=== PATIENT | male | born 1945 | race Caucasian/White ===

== ENCOUNTER → 2018-02-26 | Outpatient (CLI) | payer OTHER ==
[~2018-02-26] MED LIST: ASPI81TA28 PO; ATOR10TA82 PO; ATOR80TA PO; CALC-354 PO; CHOL100010 PO; DOXA2TAB PO; ETAN50IN2 SQ; ETAN50IN3 SQ; FEXO1TAB49 PO; FLUT1INH7; FRS/40 PO; FURO-85 PO; GLC/500 PO; HMLI SC; HMLNPUC; INSDGI SC; INSDGIPEN SC; ISOS30TA3 PO; LEVO50TA6 PO; LOSA100T2 PO; LSX40 PO; METO100T44 PO; METO50TA8 PO; NTRGSL/4 UT; OMEGCAP2 PO; PHEN37.585 PO; TOPI25TA99 PO
--- NOTE | 2018-02-26 14:19 | DIAGNOSTIC IMAGING REPORT ---
CHEST 2 VIEWS ROUTINE CLINICAL HISTORY: R06.02 Shortness of [id number] dyspnea COMPARISON STUDY: 06/10/2015 FINDINGS: Mild stable cardiomegaly. Lungs are clear. Diaphragms smooth. IMPRESSION: No acute process. The above report was generated using voice recognition software. It may contain grammatical, syntax or spelling errors. Electronically signed by: Arnav Dial M.D. 02/26/2018 2:17 PM Dictated Date/Time: 02/26/2018 2:16 PM
[2018-02-26 15:35] LABS: HEMATOCRIT 41.1 % (42-52); HEMOGLOBIN 14.4 g/dL (14.0-18.0); MEAN CELL VOLUME 91.3 fL (80-100); MEAN PLATELET VOLUME 9.9 fL (7.4-10.4); PLATELET COUNT 156 K/uL (130-400); RED CELL DISTRIBUTION WIDTH CV 12.6 % (11.5-14.5); RED CELL DISTRIBUTION WIDTH SD 42.3 fL (36.4-46.3)
[2018-02-26 15:48] LABS: BLOOD UREA NITROGEN 15 mg/dl (7-18); CARBON DIOXIDE 26 mmol/L (21-32); GLUCOSE 286 mg/dl (70-99); POTASSIUM 4.2 mmol/L (3.5-5.1); SODIUM 136 mmol/L (136-145)
== END | disposition home or self-care (01) ==
LOC: C.RAD1850 14:07
PROVIDERS: ATTEND Physician Assistant
DX: R06.02 Shortness of breath (principal); I10 Essential (primary) hypertension

== ENCOUNTER → 2018-02-28 | Day surgery (SDC) | payer OTHER ==
[~2018-02-28] VITALS: Ht 170.2 cm; Wt 141.0 kg
[~2018-02-28] MED LIST changes: +ASPIRIN 81 MG CHEW ONE; -ETAN50IN2 SQ; +FENTANYL CITRATE INJ 50 MCG/1 ML 2 ML VIAL ONE; -FURO-85 PO; +HEPARIN SOD (PORCINE) 1000 UNIT/ML 10 ML VIAL ONE; -HMLI SC; -INSDGI SC; +LIDOCAINE HCL 1% 20 ML VIAL ONE; -LOSA100T2 PO; +METOPROLOL SUCC 25MG EXT REL TAB PO ONE; +MIDAZOLAM HCL 1 MG/ML 2ML VIAL ONE; +NITROGLYCERIN/D5W 100MCG/ML 20ML SYR ONE; +NiCARDipine HCL INJ 2.5 MG/ML 10 ML AMP ONE; +ONDANSETRON INJ 2 MG/ML 2 ML VIAL IV PRN; -PHEN37.585 PO; +SODIUM CHLORIDE 0.9% 1000ML 1,000 ML IV SCH; +SODIUM CHLORIDE 0.9% 1000ML 250 ML IV PRN; -TOPI25TA99 PO
[2018-02-28 10:42] VITALS: BP 167/97; PULSE 80; TEMP 37.1; O2SAT 97; Ht 170.2 cm; Wt 141.0 kg
--- NOTE | 2018-02-28 11:15 | History & Physical Bridge Note ---
H&P Re-Evaluation Bridge Note: I have examined the patient, reviewed the History & Physical and in the interval since the performance of the History & Physical I have noted the following changes of clinical significance: No changes noted
--- NOTE | 2018-02-28 11:16 | Pre Sedation Assessment ---
Pre Sedation Assessment General Date of Sedation: Feb 28, 2018. Vital Signs Past 12 Hours Date Time Temp Pulse Resp B/P (MAP) Pulse Ox O2 Delivery O2 Flow Rate FiO2 02/28/18 10:42 37.1 80 16 167/97 (120) 97 Room Air Review Cardiovascular: regular rate, rhythm Lungs: lungs clear Pre-Sedation Airway Assessment Hx of Sleep Apnea: No Short Thick Neck: Yes Thyro-mental Distance: < or =3 Finger Breadths Oral Cavity: WNL Mallampati Classification: Class III ASA Classification: Class III NPO Status Date of Last Intake of Fluids: Feb 27, 2018 Time of Last Intake of Fluids: 2199 Date of Last Intake of Solids: Feb 27, 2018 Time of Last Intake of Solids: 2199 Procedure Planning Contraindications for Sedation: None Current Medications Reviewed: Yes Notes The planned sedation has been discussed with the patient. Informed Consent was obtained. I have identified the patient, determined the appropriateness of sedation and have assessed the patient immediately prior to the procedure. All medicine(s) and interventions are by my order.
--- NOTE | 2018-02-28 12:51 | Post Sedation Assessment ---
Post Sedation Assessment General Date of Sedation Feb 28, 2018. Vital Signs: Vital Signs Past 12 Hours Date Time Temp Pulse Resp B/P (MAP) Pulse Ox O2 Delivery O2 Flow Rate FiO2 02/28/18 12:12 68 16 166/99 (121) 98 Room Air 02/28/18 10:42 37.1 80 16 167/97 (120) 97 Room Air Post Procedure Recovery Score Activity: (2) Moves 4 extremities * Respiration: (2) Deep breath/cough Circulation: (2) +/-20% PreAnes Value Consciousness: (2) Fully Awake Oxygen Saturation: (2) > 92% On Room Air Post Anesthesia Score: 10 Discharge Sedation Level of Care: Fast Track Phase II Post Sedation Plan On clinical assessment, the patient appears to have tolerated the sedation without complications. Patient is recovering as anticipated. Patient will continue to be monitored by nursing and may be discharged when sedation discharge criteria are met per below protocol. Upon Completions of procedure and additional 15 minutes continue every 5 minute vital signs and the P.A.R. score; then discharge to a Phase I or Fast Track to Phase II per the following guidelines: * Discharge Patient to appropriate Phase II area if PAR is 8 or greater or return to pre- procedure baseline. The post - procedure orders will be as directed. * If PAR score is less than 8 or not return to pre-procedure baseline then patient will follow Phase I monitoring till PAR is reached for Phase II. The Phase I may be done in procedure room or may call to secure a Phase I area. * If naloxone or flumazenil are used for reversal, hold in Phase I for an additional 60 -120 minutes before discharge to Phase II. Please call the Sedation Physician to re-evaluate and complete post-note for discharge to Phase II area. Do NOT discharge from procedure sedation or Phase 1 until post- sedation evaluation note is complete by procedure /sedation MD Sedation Discharge Instructions to be given to the patient at discharge to home.
--- NOTE | 2018-02-28 13:22 | Cardiac Catheterization ---
Procedure Note Procedure Date Feb 28, 2018. Pre-Procedure Diagnosis Angina AUC Score 7 Post-Procedure Diagnosis Severe CAD Procedure(s) Performed Coronary Angiography, Left Heart Cath, Right Heart Cath Margin Analyst Dr. Pathak Subsorter(s) Gerson Estimated Blood Loss < 30 ml Medication(s) Aspirin, Fentanyl, Heparin, Nicardipine, Versed, Lidocaine 1% Summary of Findings Coronary angiography: 1. Left main coronary artery: No significant obstructive CAD within the left main coronary artery. 2. Left anterior descending: The LAD is a large caliber vessel that wraps around the apex. There heavy calcifications noted throughout the proximal to mid LAD. Early mid LAD 90% stenosis within with heavy calcification. This occurred just distal to an early D1. No significant CAD within D1. There is a medium caliber D2 at the distal portion of the mid LAD stenosis. Late mid LAD 70% stenosis. Distal LAD 80% stenosis at the bifurcation of a large caliber D3. D3 without significant CAD. CHEMO 3 flow noted throughout. 3. Circumflex: Codominant system. Heavy calcifications noted within the proximal to mid circumflex. Ostial circumflex 50%. Proximal circumflex 50-70% . Mid circumflex 60%. Large caliber OM1 with proximal 90% stenosis. Circumflex PDA is small without significant CAD. CHEMO 3 flow noted throughout. 4. Right coronary artery: The RCA is a small to medium caliber vessel. Codominant. Luminal irregularities noted within the mid RCA. No significant CAD within RCA PDA. Left heart catheterization: 1. Left ventriculography was not performed. 2. No aortic stenosis. 3. LVEDP mildly elevated; 15mmHg. Right heart catheterization: 1. PA pressure 33/13 with a mean of 23mmHg. 2. Mildly elevated pulmonary capillary wedge pressure. V-wave 18 with a mean of 15mmHg. 3. Right ventricular pressure 32/8 with RV EDP 12mmHg. 4. Mildly elevated right atrial pressure. A-wave 15; V-wave 14; mean 11mmHg. 5. Cardiac output via thermodilution was 6 L/min with cardiac index of 2.5 L/min /m2. 6. PVR 1.3 Wood units. Procedural details: 1. Coronary angiography was performed via the right radial artery with 6 Hungarian JL 3.5 and JR4 diagnostic catheters. 2. Right heart catheterization was performed via the right brachiocephalic vein. Sedation start time: 11:23 a.m. Sedation end time: 12:12 p.m. Impression: 1. Severe CAD involving early mid to distal LAD with heavy calcifications. Severe CAD involving circumflex system. 2. Heavily calcified circumflex and LAD. 3. No aortic stenosis. 4. Mildly elevated left-sided filling pressures. 5. Normal cardiac output. Plan: 1. Consideration for revascularization via CABG due to heavy calcium burden of involved LAD lesions. 2. Optimize medical therapy. Hemodynamics Rest Ao: 128/75 Final Ao: 147/80 LV: 149/5/15 Recommendations CABG Specimens None Radiation Exposure (mGy) 1909 mGy. Fluoro time 11.6 min. Contrast (mls) 65 ml Procedural Complication(s) None Disposition Outpatient Services Director Holding/Recovery ACC Data Cardiac Status Clinical evaluation leading to the procedure CAD Presntation: Stable angina Anginal Classification: CCS III Heart Failure: No Cardiogenic Shock w/in 24Hrs: No Cardiac Arrest w/in 24Hrs: No Imaging studies past 6 months: Yes Stress studies past 6 months: Yes Standard Exercise Stress Test: No Stress Echocardiogram: Yes - Negative Stress Testing w/SPECT MPI: No Cardiac CTA: No Coronary Anatomy Dominant: Co-dominant Left Main (% Stenosis): Normal (Calcium) LAD (% Stenosis): Proximal, Mid (early mid 90+ with significant calcium. late mid 70%. Distal LAD 80%.) D1 (% Stenosis): Normal D2 (% Stenosis): Normal D3 (% Stenosis): Normal Circumflex (% Stenosis): Ostial (50%), Proximal (50-70%), Mid (60%) OM1 (% Stenosis): Proximal (90%) L PDA (% Stenosis): Normal RCA (% Stenosis): Mid (luminal irregularities) R PDA (% Stenosis): Normal Left Ventricular Angiography EF (%): n/a Diagnostic Physician's Name: Pepe Pathak MD Status: Elective Closure Device Percutaneous Entry Location: Radial Closure Device: Radial Band Recommendations: CABG
--- NOTE | 2018-02-28 13:32 | Discharge Instructions ---
Discharge Instructions Date of Service Feb 28, 2018. Visit Reason for Visit: Cardiac catheterization Discharge Discharge Diagnosis / Problem: Severe coronary artery disease Discharge Goals Goal(s): Diagnostic testing Medications Restart Stopped Medication(s): Resume metformin in 48 hours. Activity Recommendations Activity Limitations: per Instructions/Follow-up section Anesthesia . Post Anesthesia Instructions: If you have had General Anesthesia or IV Sedation: * Do not drive today. * Resume driving when surgeon permits. * Do not make important decisions or sign legal documents today. * Call surgeon for: 1. Temperature elevations greater than 101 degrees F. 2. Uncontrollable pain. 3. Excessive bleeding. 4. Persistent nausea and vomiting. 5. Medication intolerance (nausea, vomiting or rash). * For nausea and vomiting use only clear liquids such as: tea, soda, bouillon until nausea subsides, then gradually increase diet as tolerated. * If you have any concerns or questions, call your surgeon's office. If physician is unavailable and it is an emergency, call 911 or go to the nearest emergency room. . Instructions / Follow-Up Instructions / Follow-Up ACTIVITY RECOMMENDATIONS: 1. Labs in 5-7 days. 2. Call 911 if chest pain does NOT resolve within 5 minutes of nitroglycerin. 3. Notify your contract officer immediately if you get chest pain at rest. 4. Check daily weight, record values, and bring to next appointment. 5. Consume less than 2000 mg of sodium per day. 6. Contact Dr. Pathak's office regarding CT surgery consultation ([phone]). Excess manipulation of the wrist should be avoided for the next 24-48 hours. * No lifting over 2 pounds (approximately a 1/2 gallon of milk) with the utilized arm for 24 hours. * No strenuous activity such as bowling or tennis for 3 days. * Keep the site of the procedure covered with a bandage for 24 hours. *You may shower the day after the procedure. Do not take a tub bath or submerge the puncture site in water for the next 3 days. *Do not operate any motorized equipment for 3 days. SPECIAL CARE INSTRUCTIONS: The site may be slightly bruised and sore following your procedure. Should any of the following occur, contact the DrKan who performed your procedure. 1. Redness/inflammation, swelling, chills, or fever, or colored drainage at procedure site within 3-7 days after your procedure. 2. Coldness, discoloration, ongoing numbness, severe pain, or swelling. Expect mild tingling of hand and tenderness at the puncture site for up to three days. If this persists beyond three days, or other symptoms develop, notify the Dr. who performed your procedure. BLEEDING: If the procedure site on your wrist begins to bleed, do not panic 1. Place 1 or 2 fingers firmly just slightly above the insertion site to stop the bleeding. You may be able to feel your pulse as you hold pressure. 2. Lift your finger after 5 minutes to see if the bleeding has stopped. 3. Once the bleeding has stopped, gently wipe the wrist area clean with a bandage. * If the bleeding from your wrist does not stop after 10 minutes, or if there is a large amount of bleeding or spurting, call 911 (do not drive yourself to the hospital). SKIN IRRITATION: * You may experience some redness and/or swelling in the area where radiation was administered. If any skin irritation occurs, please contact your family physician. FOLLOW UP VISIT: Keep any scheduled doctor appointments. Diet Recommendations Recommended Home Diet: low sodium, low cholesterol, diabetes diet Procedures Procedures Performed: 1. Coronary angiography 2. Left and right heart catheterization Pending Studies Studies pending at discharge: no Medical Emergencies . Who to Call and When: Medical Emergencies: If at any time you feel your situation is an emergency, please call 911 immediately. . Non-Emergent Contact Non-Emergency issues call your: Transmission Specialist . . "Provider Documentation" section prepared by Pepe Cheung. .
[2018-02-28 14:10] VITALS: BP 143/90; PULSE 77; O2SAT 98
== END | disposition home or self-care (01) ==
LOC: C.CATH 10:08
PROVIDERS: ATTEND Internal Medicine Cardiovascular Disease
DX: I25.10 Atherosclerotic heart disease of native coronary artery without angina pectoris (principal); R06.02 Shortness of breath; R07.89 Other chest pain; I10 Essential (primary) hypertension; E78.5 Hyperlipidemia, unspecified; E11.9 Type 2 diabetes mellitus without complications; E66.9 Obesity, unspecified; M06.9 Rheumatoid arthritis, unspecified; E03.9 Hypothyroidism, unspecified; Z82.49 Family history of ischemic heart disease and other diseases of the circulatory system; Z87.891 Personal history of nicotine dependence; Z79.82 Long term (current) use of aspirin; Z79.4 Long term (current) use of insulin; Z88.5 Allergy status to narcotic agent

== ENCOUNTER → 2018-03-05 | Outpatient (CLI) | payer OTHER ==
[~2018-03-05] MED LIST changes: -ASPIRIN 81 MG CHEW ONE; -ATOR10TA82 PO; -FENTANYL CITRATE INJ 50 MCG/1 ML 2 ML VIAL ONE; -FRS/40 PO; -HEPARIN SOD (PORCINE) 1000 UNIT/ML 10 ML VIAL ONE; -LIDOCAINE HCL 1% 20 ML VIAL ONE; -METO50TA8 PO; -METOPROLOL SUCC 25MG EXT REL TAB PO ONE; -MIDAZOLAM HCL 1 MG/ML 2ML VIAL ONE; -NITROGLYCERIN/D5W 100MCG/ML 20ML SYR ONE; -NiCARDipine HCL INJ 2.5 MG/ML 10 ML AMP ONE; -ONDANSETRON INJ 2 MG/ML 2 ML VIAL IV PRN; -SODIUM CHLORIDE 0.9% 1000ML 1,000 ML IV SCH; -SODIUM CHLORIDE 0.9% 1000ML 250 ML IV PRN
[2018-03-05 15:28] LABS: BLOOD UREA NITROGEN 22 mg/dl (7-18); CALCIUM 9.1 mg/dl (8.5-10.1); CARBON DIOXIDE 33 mmol/L (21-32); CREATININE 1.03 mg/dl (0.60-1.40); GLUCOSE 279 mg/dl (70-99); POTASSIUM 3.6 mmol/L (3.5-5.1); SODIUM 137 mmol/L (136-145)
== END | disposition home or self-care (01) ==
LOC: C.LAB1850 13:58
PROVIDERS: ATTEND Internal Medicine Cardiovascular Disease
DX: I50.32 Chronic diastolic (congestive) heart failure (principal)

== ENCOUNTER 2018-03-23 08:17 | Emergency (ER) | payer OTHER ==
[~2018-03-23] VITALS: Ht 170.2 cm; Wt 147.4 kg
[2018-03-23 08:35] VITALS: TEMP 36.4; Ht 170.2 cm; Wt 147.4 kg
[2018-03-23 08:42] VITALS: O2SAT 96
[2018-03-23] MEDS ORDERED: ALBUT/IPRATROP 3MG/0.5MG NEB 3 ML VIAL INH STA (08:48)
[2018-03-23] MEDS ORDERED: MoRPHine SULFATE 4 MG/ML 1 ML CARP\\VIAL IV STA (08:48)
[2018-03-23] MEDS ORDERED: METO50TA16 PO (08:56)
[2018-03-23] MEDS ORDERED: LEVO75TA PO (08:56)
[2018-03-23] MEDS ORDERED: CYAN100020 PO (08:56)
[2018-03-23] MEDS ORDERED: CHOL100010 PO (08:56)
[2018-03-23] MEDS ORDERED: FUROSEMIDE 40 MG/4 ML VIAL ONE (08:58)
[2018-03-23] MEDS ORDERED: FUROSEMIDE INJ 80 MG in SYRINGE 0 ML IV ONE (09:00)
[2018-03-23 09:03] LABS: HEMATOCRIT 25.8 % (42-52); HEMOGLOBIN 8.8 g/dL (14.0-18.0); MEAN CELL VOLUME 92.8 fL (80-100); MEAN CORPUSCULAR HEMOGLOBIN 31.7 pg (25-34); MEAN CORPUSCULAR HGB CONC 34.1 g/dl (32-36); MEAN PLATELET VOLUME 8.8 fL (7.4-10.4); NUCLEATED RED BLOOD CELL ABS 0.03 K/uL (0-0); PLATELET COUNT 212 K/uL (130-400); RED CELL DISTRIBUTION WIDTH CV 14.1 % (11.5-14.5); WHITE BLOOD COUNT 8.63 K/uL (4.8-10.8)
[2018-03-23 09:12] LABS: PTT PATIENT 24.9 SECONDS (21.0-31.0)
--- NOTE | 2018-03-23 09:15 | DIAGNOSTIC IMAGING REPORT ---
CHEST ONE VIEW PORTABLE HISTORY: 72 years-old Male sob acute shortness of breath COMPARISON: Chest radiograph 02/26/2018 TECHNIQUE: Portable AP view of the chest FINDINGS: Cardiac silhouette is moderately enlarged. Atherosclerosis of the aorta. Prior median sternotomy. Mild blunting of the costophrenic angles suggests trace pleural effusions with subsegmental bibasilar opacities. No pneumothorax or overt pulmonary edema. Bones of the chest appear grossly intact. IMPRESSION: 1. Cardiomegaly without overt pulmonary edema. 2. Subsegmental bibasilar opacities suggest atelectasis. Mild blunting of the costophrenic angles may be secondary to atelectasis or trace effusions. The above report was generated using voice recognition software. It may contain grammatical, syntax or spelling errors. Electronically signed by: Sawyer An M.D. 03/23/2018 9:14 AM Dictated Date/Time: 03/23/2018 9:12 AM
[2018-03-23 09:16] LABS: ALBUMIN 2.7 gm/dl (3.4-5.0); ALT/SGPT 31 U/L (12-78); AST/SGOT 28 U/L (15-37); BLOOD UREA NITROGEN 16 mg/dl (7-18); CALCIUM 8.3 mg/dl (8.5-10.1); CARBON DIOXIDE 31 mmol/L (21-32); CREATININE 0.74 mg/dl (0.60-1.40); GLUCOSE 154 mg/dl (70-99); SODIUM 135 mmol/L (136-145)
[2018-03-23] MEDS ORDERED: INSU100I SC (09:22)
[2018-03-23] MEDS ORDERED: INSDGIPEN SC ×2 (09:22)
[2018-03-23] MEDS ORDERED: RXC5 PO (09:23)
[2018-03-23] MEDS ORDERED: POTA-639 PO (09:23)
[2018-03-23 09:24] LABS: ALKALINE PHOSPHATASE 94 U/L (45-117); TOTAL PROTEIN 6.6 gm/dl (6.4-8.2)
[2018-03-23 09:39] LABS: BASO % 0.5 %; BASO ABS # 0.04 K/uL (0-0.2); EOS % 5.6 %; EOS ABS # 0.48 K/uL (0-0.5); IG# 0.54 K/uL (0.00-0.02); LYMPH % 15.6 %; LYMPH ABS # 1.35 K/uL (1.2-3.4); MONO % 7.9 %; MONO ABS # 0.68 K/uL (0.11-0.59); NEUT % 64.1 %; NEUT ABS # 5.54 K/uL (1.4-6.5)
[2018-03-23] MEDS ORDERED: OPTIRAY 320 IV PRN (10:45)
--- NOTE | 2018-03-23 11:31 | DIAGNOSTIC IMAGING REPORT ---
(CHEST FOR PE) ANGIO WITH CT DOSE: 640.51 mGy.cm HISTORY: 72 years-old Male presents with acute shortness of breath and DIP seen with history of recent open heart surgery. TECHNIQUE: Multiple CTA images of the chest were obtained after the intravenous administration of 104 ml Optiray 320. Coronal and sagittal MIPS were obtained from the axial data set and were submitted for review. A dose lowering technique was utilized adhering to the principles of ALARA. COMPARISON: Chest radiograph 03/23/2018 FINDINGS: CTA: Mild multichamber cardiac enlargement with trace pericardial effusion. Coronary arterial calcifications are noted with evidence of recent CABG. Thoracic aorta demonstrates mild to moderate atherosclerotic plaquing and is patent without aneurysm or dissection the imaged great vessels appear patent. The pulmonary arterial tree is opacified to level of the lobar branches with the segmental and subsegmental branches not well seen secondary to contrast bolus timing and respiratory motion. Ill-defined area of low-attenuation involving a subsegmental pulmonary arterial branch within the posterior basal segment right lower lobe on image 92 series 4 is noted. Additionally, there is an ill-defined area of low-attenuation within a subsegmental pulmonary arterial branch within the apical segment right upper lobe, image 151 series 4. No evidence of central pulmonary thromboembolic disease. CT CHEST: No dominant thyroid nodule identified. Mildly enlarged nonspecific right hilar lymph node measures 1.0 cm, likely physiologic. Evidence of recent median sternotomy with mild deep and superficial soft tissue edema noted about the sternotomy site. Air is also noted within the epicardial fat just deep to the sternotomy site. No drainable fluid collections identified. Small bilateral pleural effusions with dependent subsegmental right basilar consolidation. Patchy bilateral groundglass opacities suggest atelectasis. Evaluation of the lung bases is limited secondary to respiratory motion. The central airways are patent with mild layering mucosal secretions. No acute process of the imaged upper abdomen. Bones appear intact and are mildly demineralized. Degenerative changes about the spine. IMPRESSION: 1. Evidence of recent median sternotomy and CABG with likely expected postsurgical deep tissue edema both superficial and deep to the sternotomy site. Edema and air within the adjacent epicardial tissues deep to the sternotomy site is also likely expected postsurgical findings with superimposed infection also in the differential. 2. Suboptimal evaluation of the pulmonary arterial tree secondary to contrast bolus timing and respiratory motion. Ill-defined apparent filling defects within a subsegmental right lower lobe and apical segment right upper lobe pulmonary arterial branch are equivocal for small pulmonary emboli or artifact. No central pulmonary emboli identified. Follow-up with duplex venous Doppler study of the lower extremities recommended. 3. Small bilateral pleural effusions with dependent bibasilar consolidation suggesting compressive atelectasis. The above report was generated using voice recognition software. It may contain grammatical, syntax or spelling errors. Electronically signed by: Sawyer An M.D. 03/23/2018 11:29 AM Dictated Date/Time: 03/23/2018 11:12 AM
--- NOTE | 2018-03-23 12:56 | DIAGNOSTIC IMAGING REPORT ---
BILATERAL LOWER EXTREMITY VENOUS DOPPLER HISTORY: Acute bilateral lower extremity pain and swelling r/o dvt COMPARISON STUDY: None. FINDINGS: There is normal compressibility, flow, and augmentation within the bilateral lower extremity deep venous systems. Mild subcutaneous edema about the lower extremities. IMPRESSION: No sonographic evidence of deep venous thrombosis within the right or left lower extremity. Electronically signed by: Sawyer An M.D. 03/23/2018 12:54 PM Dictated Date/Time: 03/23/2018 12:53 PM
--- NOTE | 2018-03-23 13:10 | EMERGENCY ROOM VISIT NOTE ---
History Report prepared by Kerry: Valdemar Cr Under the Supervision of: Dr. Himanshu Mak D.O. First contact with patient: 08:41 Chief Complaint: RESPIRATORY PROBLEMS Stated Complaint: DIFF. BREATHING Nursing Triage Summary: Increase SOB STARTED 0400 THIS AM, COUGH TRIPLE BY PASS 8 DAYS AGO History of Present Illness The patient is a 72 year old male who presents to the Emergency Room with complaints of constant shortness of breath starting this morning around 0600. The patient states that he woke up this morning feeling okay, and then he walked to the bathroom, and afterwards he walked back to his chair and became short of breath. He states that he was trying to get in a good position in the chair, though he could still not catch his breath. The patient states that he was trying to cough up phlegm, though he was unable to produce any. The patient' s notes that the patient used albuterol this morning, and the patient states that this helped a little bit. The patient notes that he has a history of a recent CABG, and he has had increased leg swelling since then. He is not currently on any blood thinners, and he states that he is currently on Lasix, though he has not had any this morning and had only had Tylenol. The patient has been eating and drinking normally recently, and he has not had any fevers. He is not on oxygen at home. Source of History: patient, spouse/significant other Onset: 0600 Position: other (generalized) Quality: other (shortness of breath) Timing: constant Modifying Factors (Relieving): other (albuterol) Associated Symptoms: + cough, No fevers Review of Systems See HPI for pertinent positives & negatives. A total of 10 systems reviewed and were otherwise negative. Past Medical & Surgical Medical Problems: (1) CAD (coronary artery disease) Surgical Problems: (1) Hx of CABG Family History Cancer Social History Smoking Status: Former Smoker Marital Status: Housing Status: lives with family Occupation Status: retired Current/Historical Medications Scheduled Aspirin (Aspirin Ec), 81 MG PO HS Atorvastatin (Lipitor), 1 TAB PO DAILY Cholecalciferol (Vitamin D), 2,000 INTERUNIT PO DAILY Cyanocobalamin (Vitamin B12), 1 TAB PO DAILY Doxazosin Mesylate (Cardura), 2 MG PO QAM Etanercept (Enbrel Sureclick), 50 MG SQ WK Furosemide (Furosemide), 1 TAB PO BID Insulin Glargine (Lantus Solostar), 30 UNITS SC QAM Insulin Glargine (Lantus Solostar), 15 UNITS SC QPM Insulin Lispro (Human) (Humalog), Unknown Dose SC BIDM Levofloxacin (Levaquin), 500 MG PO DAILY Levothyroxine Sodium (Synthroid), 75 MCG PO DAILY Metformin Hcl (Glucophage), 500 MG PO BID Metoprolol Tartrate (Lopressor) (Lopressor), 75 MG PO BID Potassium Ext Rel (Klor-Con), 20 MEQ PO BID Scheduled PRN Nitroglycerin (Nitrostat), 0.4 MG UT PRN PRN for Chest Pain Oxycodone HCl (Oxycodone HCl), 5 MG PO Q4 PRN for Pain Miscellaneous Medications Fluticasone Furoate-Vilanterol (Breo Ellipta 200-25 Mcg/INH) Allergies Coded Allergies: Tramadol (Verified Adverse Reaction, Severe, confusion, 03/23/18) Acetaminophen (Verified Adverse Reaction, Unknown, nausea, 03/23/18) Hydrocodone (Verified Adverse Reaction, Unknown, nausea, 03/23/18) Physical Exam Vital Signs Date Time Temp Pulse Resp B/P (MAP) Pulse Ox O2 Delivery O2 Flow Rate FiO2 03/23/18 11:53 100 26 03/23/18 11:23 94 17 98 03/23/18 11:18 186/87 03/23/18 11:16 93 20 174/129 98 Nasal Cannula 2.0 03/23/18 10:41 92 18 97 Nasal Cannula 2.0 03/23/18 10:36 93 19 97 03/23/18 10:31 93 11 136/71 94 03/23/18 10:26 90 13 98 03/23/18 10:21 88 21 99 03/23/18 10:16 88 17 98 03/23/18 10:11 90 18 96 03/23/18 10:06 86 11 96 03/23/18 10:01 158/100 03/23/18 09:47 85 12 98 03/23/18 09:31 136/76 03/23/18 09:17 81 16 100 03/23/18 09:01 139/59 03/23/18 08:47 87 22 87 03/23/18 08:42 93 Room Air 03/23/18 08:42 96 Nasal Cannula 2.0 03/23/18 08:35 36.4 104 22 117/67 93 Room Air 03/23/18 08:27 93 03/23/18 08:23 117/67 03/23/18 08:23 87 Physical Exam CONSTITUTIONAL/VITAL SIGNS: Reviewed / noted above. GENERAL: Non-toxic in appearance. INTEGUMENTARY: Warm, dry, and [place]. HEAD: Normocephalic. EYES: without scleral icterus or trauma. ENT/OROPHARYNX: clear and moist. LYMPHADENOPATHY/NECK: Is supple without lymphadenopathy or meningismus. RESPIRATORY: Bibasilar crackles. CARDIOVASCULAR: Regular rate and rhythm. CHEST: Healing wound to the anterior chest wall from recent bypass surgery. GI/ABDOMEN: Soft and nontender. No organomegaly or pulsatile mass. No rebound or guarding. Normal bowel sounds. EXTREMITIES: Bilateral lower extremity edema. Healing wounds in the right leg from recent bypass surgery. Warm and well perfused. BACK: No CVA tenderness. NEUROLOGICAL: Intact without focal deficits. PSYCHIATRIC: normal affect. MUSCULOSKELETAL: Normally developed with good muscle tone. Medical Decision & Procedures ER Provider Diagnostic Interpretation: Radiology results as stated below per my review and radiologist interpretation: CHEST ONE VIEW PORTABLE HISTORY: 72 years-old Male sob acute shortness of breath COMPARISON: Chest radiograph 02/26/2018 TECHNIQUE: Portable AP view of the chest FINDINGS: Cardiac silhouette is moderately enlarged. Atherosclerosis of the aorta. Prior median sternotomy. Mild blunting of the costophrenic angles suggests trace pleural effusions with subsegmental bibasilar opacities. No pneumothorax or overt pulmonary edema. Bones of the chest appear grossly intact. IMPRESSION: 1. Cardiomegaly without overt pulmonary edema. 2. Subsegmental bibasilar opacities suggest atelectasis. Mild blunting of the costophrenic angles may be secondary to atelectasis or trace effusions. The above report was generated using voice recognition software. It may contain grammatical, syntax or spelling errors. Electronically signed by: Sawyer An M.D. 03/23/2018 9:14 AM Dictated Date/Time: 03/23/2018 9:12 AM (CHEST FOR PE) ANGIO WITH CT DOSE: 640.51 mGy.cm HISTORY: 72 years-old Male presents with acute shortness of breath and DIP seen with history of recent open heart surgery. TECHNIQUE: Multiple CTA images of the chest were obtained after the intravenous administration of 104 ml Optiray 320. Coronal and sagittal MIPS were obtained from the axial data set and were submitted for review. A dose lowering technique was utilized adhering to the principles of ALARA. COMPARISON: Chest radiograph 03/23/2018 FINDINGS: CTA: Mild multichamber cardiac enlargement with trace pericardial effusion. Coronary arterial calcifications are noted with evidence of recent CABG. Thoracic aorta demonstrates mild to moderate atherosclerotic plaquing and is patent without aneurysm or dissection the imaged great vessels appear patent. The pulmonary arterial tree is opacified to level of the lobar branches with the segmental and subsegmental branches not well seen secondary to contrast bolus timing and respiratory motion. Ill-defined area of low-attenuation involving a subsegmental pulmonary arterial branch within the posterior basal segment right lower lobe on image 92 series 4 is noted. Additionally, there is an ill-defined area of low-attenuation within a subsegmental pulmonary arterial branch within the apical segment right upper lobe, image 151 series 4. No evidence of central pulmonary thromboembolic disease. CT CHEST: No dominant thyroid nodule identified. Mildly enlarged nonspecific right hilar lymph node measures 1.0 cm, likely physiologic. Evidence of recent median sternotomy with mild deep and superficial soft tissue edema noted about the sternotomy site. Air is also noted within the epicardial fat just deep to the sternotomy site. No drainable fluid collections identified. Small bilateral pleural effusions with dependent subsegmental right basilar consolidation. Patchy bilateral groundglass opacities suggest atelectasis. Evaluation of the lung bases is limited secondary to respiratory motion. The central airways are patent with mild layering mucosal secretions. No acute process of the imaged upper abdomen. Bones appear intact and are mildly demineralized. Degenerative changes about the spine. IMPRESSION: 1. Evidence of recent median sternotomy and CABG with likely expected postsurgical deep tissue edema both superficial and deep to the sternotomy site. Edema and air within the adjacent epicardial tissues deep to the sternotomy site is also likely expected postsurgical findings with superimposed infection also in the differential. 2. Suboptimal evaluation of the pulmonary arterial tree secondary to contrast bolus timing and respiratory motion. Ill-defined apparent filling defects within a subsegmental right lower lobe and apical segment right upper lobe pulmonary arterial branch are equivocal for small pulmonary emboli or artifact. No central pulmonary emboli identified. Follow-up with duplex venous Doppler study of the lower extremities recommended. 3. Small bilateral pleural effusions with dependent bibasilar consolidation suggesting compressive atelectasis. The above report was generated using voice recognition software. It may contain grammatical, syntax or spelling errors. Electronically signed by: Sawyer An M.D. 03/23/2018 11:29 AM Dictated Date/Time: 03/23/2018 11:12 AM BILATERAL LOWER EXTREMITY VENOUS DOPPLER HISTORY: Acute bilateral lower extremity pain and swelling r/o dvt COMPARISON STUDY: None. FINDINGS: There is normal compressibility, flow, and augmentation within the bilateral lower extremity deep venous systems. Mild subcutaneous edema about the lower extremities. IMPRESSION: No sonographic evidence of deep venous thrombosis within the right or left lower extremity. Electronically signed by: Sawyer An M.D. 03/23/2018 12:54 PM Dictated Date/Time: 03/23/2018 12:53 PM Laboratory Results 03/23/18 08:34 Red Blood Count 2.78, Mean Corpuscular Volume 92.8, Mean Corpuscular Hemoglobin 31.7, Mean Corpuscular Hemoglobin Concent 34.1, Mean Platelet Volume 8.8, Neutrophils (%) (Auto) 64.1, Lymphocytes (%) (Auto) 15.6, Monocytes (%) (Auto) 7.9, Eosinophils (%) (Auto) 5.6, Basophils (%) (Auto) 0.5, Neutrophils # (Auto) 5.54, Lymphocytes # (Auto) 1.35, Monocytes # (Auto) 0.68, Eosinophils # (Auto) 0.48, Basophils # (Auto) 0.04 03/23/18 08:34 Test 03/23/18 08:34 White Blood Count 8.63 K/uL (4.8-10.8) Red Blood Count 2.78 M/uL (4.7-6.1) Hemoglobin 8.8 g/dL (14.0-18.0) Hematocrit 25.8 % (42-52) Mean Corpuscular Volume 92.8 fL (80-100) Mean Corpuscular Hemoglobin 31.7 pg (25-34) Mean Corpuscular Hemoglobin Concent 34.1 g/dl (32-36) Platelet Count 212 K/uL (130-400) Mean Platelet Volume 8.8 fL (7.4-10.4) Neutrophils (%) (Auto) 64.1 % Lymphocytes (%) (Auto) 15.6 % Monocytes (%) (Auto) 7.9 % Eosinophils (%) (Auto) 5.6 % Basophils (%) (Auto) 0.5 % Neutrophils # (Auto) 5.54 K/uL (1.4-6.5) Lymphocytes # (Auto) 1.35 K/uL (1.2-3.4) Monocytes # (Auto) 0.68 K/uL (0.11-0.59) Eosinophils # (Auto) 0.48 K/uL (0-0.5) Basophils # (Auto) 0.04 K/uL (0-0.2) RDW Standard Deviation 46.0 fL (36.4-46.3) RDW Coefficient of Variation 14.1 % (11.5-14.5) Immature Granulocyte % (Auto) 6.3 % Immature Granulocyte # (Auto) 0.54 K/uL (0.00-0.02) Nucleated RBC Absolute Count (auto) 0.03 K/uL (0-0) Nucleated Red Blood Cells % 0.3 % Red Blood Cell Morphology Unremarkable Prothrombin Time 10.8 SECONDS (9.0-12.0) Prothromb Time International Ratio 1.0 (0.9-1.1) Activated Partial Thromboplast Time 24.9 SECONDS (21.0-31.0) Partial Thromboplastin Ratio 1.0 Anion Gap 5.0 mmol/L (3-11) Est Creatinine Clear Calc Drug Dose 127.7 ml/min Estimated GFR () 107.6 Estimated GFR (Non- 92.8 BUN/Creatinine Ratio 21.4 (10-20) Calcium Level 8.3 mg/dl (8.5-10.1) Total Bilirubin 1.6 mg/dl (0.2-1) Aspartate Amino Transf (AST/SGOT) 28 U/L (15-37) Alanine Aminotransferase (ALT/SGPT) 31 U/L (12-78) Alkaline Phosphatase 94 U/L (45-117) Total Creatine Kinase 49 U/L (39-308) Creatine Kinase MB 1.0 ng/ml (0.5-3.6) Creatine Kinase MB Ratio 2.0 (0-3.0) Troponin I < 0.015 ng/ml (0-0.045) Pro-B-Type Natriuretic Peptide 1147 pg/ml (0-900) Total Protein 6.6 gm/dl (6.4-8.2) Albumin 2.7 gm/dl (3.4-5.0) Globulin 3.9 gm/dl (2.5-4.0) Albumin/Globulin Ratio 0.7 (0.9-2) Laboratory results as stated above per my review. Medications Administered Medications (Trade) Dose Ordered Sig/Alondra Route Start Time Stop Time Status Last Admin Dose Admin Albuterol/ Ipratropium (Duoneb) 3 ml NOW STAT INH 03/23/18 08:48 03/23/18 08:50 DC 03/23/18 09:02 3 ML Morphine Sulfate (MoRPHine SULFATE INJ) 4 mg NOW STAT IV 03/23/18 08:48 03/23/18 08:51 DC 03/23/18 09:01 4 MG Furosemide (Lasix Inj) 80 mg STK-MED ONCE .ROUTE 03/23/18 08:58 03/23/18 08:59 DC 03/23/18 09:03 80 MG Albuterol (Ventolin Hfa Inhaler) 2 puffs NOW ONCE INH 03/23/18 13:30 03/23/18 13:31 DC 03/23/18 13:39 2 PUFFS Levofloxacin (Levaquin Tab) 500 mg NOW ONCE PO 03/23/18 13:30 03/23/18 13:31 DC 03/23/18 13:38 500 MG ECG Per My Interpretation Indication: SOB/dyspnea Rate (beats per minute): 85 Rhythm: sinus rhythm Findings: PAC, other (No ST elevation) ED Course 0841: Previous medical records were reviewed. The patient was evaluated in room B11. A complete history and physical examination was performed. 0848: Morphine Sulfate 4mg IV, DuoNeb 3ml INH 0858: Lasix 80mg IV 1020: I reevaluated the patient, and I discussed the treatment plan with him. He is going to get a CT. 1209: I reevaluated the patient, and he is doing well. 1310: On reevaluation, the patient is doing better. I discussed the results and findings with the patient. He verbalized agreement of the treatment plan. He was discharged home. 1330: Levaquin 500mg PO, Albuterol 2 puffs INH Medical Decision the differential was considered includes acute myocardial infarction, acute coronary syndrome, myocarditis, pericarditis, pericardial effusions /tamponade, esophageal perforation, pulmonary embolism, pneumonia, pneumothorax, cardiomyopathy, congestive heart, anemia , COPD/asthma exacerbation. This is a 72-year-old male who presents to the ED with a chief complaint of shortness of breath. The patient states that the symptoms started around 6 AM. He states that he went to the bathroom and became short of breath on the way back. He does report a sensation of a cough and that there is junk in his lungs that have stopped moving. He had 3 vessel bypass 8 days ago at [facility]. His vital signs here are normal. Oxygen saturations are 93 % and heart rate was about 103. The patient's physical exam reveals bibasilar crackles. There is also lower extremity edema and postsurgical changes of the right leg and chest wall related to his surgery. The patient's hemoglobin today is 8.8. It was 9.1 on March 19, 4 days ago at [facility]. I did obtain the records from [facility]. The patient's troponin today was negative. BNP was 1147. Chest x-ray reveals cardiomegaly and atelectasis. A CT scan of the chest was performed and reveals postsurgical changes, bilateral pleural effusions as well as equivocal pulmonary emboli. An ultrasound was recommended to follow-up on these equivocal pulmonary emboli. The ultrasound of the lower extremities was negative. This is felt to be unlikely related to PEs. The patient's symptoms are likely related to atelectasis. He has been using his incentive spirometer but not well, according to the patient. He was given a 680 mg IV here. He states that he normally takes 80 mg daily but did not take it this morning. He was given a DuoNeb treatment here as well as one in route. After evaluating the test results as well as the patient, his vital signs are stable. He was felt to be stable for discharge, continue incentive spirometry and continue his recovery from his CABG. The patient was discharged with an albuterol inhaler as well as a course of Levaquin. He does cough up some yellow sputum at times. Medication Reconcilliation Current Medication List: was personally reviewed by me Blood Pressure Screening Patient's blood pressure: Elevated blood pressure Blood pressure disposition: Referred to PCP Impression Primary Impression: Dyspnea Additional Impressions: Atelectasis S/P CABG x 3 Acute bronchitis Scribe Attestation The scribe's documentation has been prepared under my direction and personally reviewed by me in its entirety. I confirm that the note above accurately reflects all work, treatment, procedures, and medical decision making performed by me. Departure Information Dispostion Home / Self-Care Prescriptions Levofloxacin (Levaquin) 500 Mg Tab 500 MG PO DAILY for 7 Days, #7 TAB Prov: Himanshu Mak D.O. 03/23/18 Referrals Rc Bell D.O. (PCP) Forms HOME CARE DOCUMENTATION FORM, IMPORTANT VISIT INFORMATION, WORK / SCHOOL INSTRUCTIONS Patient Instructions My [facility] Additional Instructions Continue your incentive spirometer. Continue therapies recommended by your doctors after your surgery. Your hemoglobin today was 8.8. Have your doctor recheck this next week. Ultrasounds of her lower extremities did not reveal blood clots. Chest x-ray and CT scan did not show findings to suggest pneumonia. Use albuterol inhaler every 4 hours as needed. Levaquin as prescribed. Follow-up with your doctor for further care and evaluation in 1-2 days. Return to the emergency department for worsening or new symptoms or any concerns. You have been examined and treated today on an emergency basis only. This is not a substitute for, or an effort to provide, complete comprehensive medical care. It is impossible to recognize and treat all injuries or illnesses in a single emergency department visit. It is therefore important that you follow up closely with your doctor. Call as soon as possible for an appointment. Problem Qualifiers
[2018-03-23] MEDS ORDERED: LEVO-366 PO (13:20)
[2018-03-23] MEDS ORDERED: ALBUTEROL HFA 8 GM INHALER INH ONE (13:30)
[2018-03-23] MEDS ORDERED: LEVOFLOXACIN 250 MG TAB PO ONE (13:30)
[2018-03-23 14:29] VITALS: BP 141/74; PULSE 95; O2SAT 95
== END 2018-03-23 14:30 | disposition home or self-care (01) ==
LOC: EDBD 08:17 → C.EDB 08:20
DX: R06.00 Dyspnea, unspecified (principal); J98.11 Atelectasis; Z98.890 Other specified postprocedural states; J20.9 Acute bronchitis, unspecified; I25.10 Atherosclerotic heart disease of native coronary artery without angina pectoris; Z87.891 Personal history of nicotine dependence; Z79.4 Long term (current) use of insulin; Z88.8 Allergy status to other drugs, medicaments and biological substances; Z88.5 Allergy status to narcotic agent

== ENCOUNTER 2019-01-31 12:56 | Inpatient (IN) ==
[2019-01-31 14:45] LABS: Basophils # (auto) 0.07 K/uL (0-0.2); Basophils % (auto) 0.9 %; Eosinophils # (auto) 0.23 K/uL (0-0.5); Eosinophils % (auto) 2.9 %; Hematocrit (blood only) 42.8 % (42-52); Hemoglobin 14.9 g/dL (14.0-18.0); Immature Granulocytes # (auto) 0.04 K/uL (0.00-0.02); Immature Granulocytes % (auto) 0.5 %; Lymphocytes # (auto) 1.38 K/uL (1.2-3.4); Lymphocytes % (auto) 17.3 %; Mean Corpuscular Hgb Conc 34.8 g/dL (32-36); Mean Corpuscular Volume 93.7 fL (80-100); Mean Platelet Volume 9.4 fL (7.4-10.4); Monocytes # (auto) 0.83 K/uL (0.11-0.59); Monocytes % (auto) 10.4 %; Neutrophils # (auto) 5.45 K/uL (1.4-6.5); Platelet Count 182 K/uL (130-400); RDW Coefficient of Variation 13.9 % (11.5-14.5); RDW Standard Deviation 47.3 fL (36.4-46.3); Red Blood Count 4.57 M/uL (4.7-6.1)
[2019-01-31 15:04] LABS: Alanine Aminotransferase 23 U/L (12-78); Albumin Level 3.5 gm/dl (3.4-5.0); Aspartate Aminotransferase 19 U/L (15-37); BUN Creatinine Ratio 27.1 (10-20); Blood Urea Nitrogen 24 mg/dl (7-18); Carbon Dioxide 32 mmol/L (21-32); Chloride 102 mmol/L (98-107); Creatinine Clr Calc Pharmacy 100.8 ml/min; Est GFR (Non-African American) 85.4; Glucose 123 mg/dl (70-99); Sodium 140 mmol/L (136-145)
[2019-01-31 15:08] LABS: Albumin Globulin Ratio 0.8 (0.9-2); Alkaline Phosphatase 143 U/L (45-117); Bilirubin,Total 1.3 mg/dl (0.2-1); Globulin 4.6 gm/dl (2.5-4.0); Total Protein 8.1 gm/dl (6.4-8.2); Troponin I < 0.015 ng/ml (0-0.045)
--- NOTE | 2019-01-31 15:09 | XRay Report ---
XR chest 1V portable CLINICAL HISTORY: Shortness of breath. COMPARISON STUDY: Chest radiograph and chest CT March 23, 2018. FINDINGS: There are median sternotomy wires and mediastinal surgical clips. There is no pneumothorax or pleural effusion. There is no consolidation or evidence for pulmonary edema. Linear left midlung o pacity suggest atelectasis. Cardiomegaly is unchanged. The appearance of the chest is unchanged. IMPRESSION: No acute cardiopulmonary findings. Electronically signed by: Krishan Cantu M.D. 01/31/2019 3:07 PM
[2019-01-31 15:24] LABS: INR 1.1 (0.9-1.1); Partial Thromboplastin Time 26.4 Seconds (21.0-31.0); Prothrombin Time 11.4 Seconds (9.0-12.0)
--- NOTE | 2019-01-31 16:21 | Ultrasound Report ---
BILATERAL LOWER EXTREMITY VENOUS DOPPLER HISTORY: Lower extremity swelling. COMPARISON STUDY: None. FINDINGS: There is normal compressibility, flow, and augmentation within the bilateral lower extremit y deep venous systems. IMPRESSION: No DVT within the right or left lower extremity. Electronically signed by: Deejay Yee M.D. 01/31/2019 4:20 PM
[2019-01-31] MEDS ORDERED: OPTIRAY 320 125ml IV PRN (16:41)
--- NOTE | 2019-01-31 16:59 | CT Scan Report ---
CHEST CTA for PULMONARY ARTERIES CT DOSE: 688.17 mGy.cm HISTORY: Right pleuritic chest pain and short of breath TECHNIQUE: Multiaxial CT images of the chest were performed following the intravenous administration of contrast to evaluate the pulmonary arteries. Maximal intensity projection images were also obtaine d. A dose lowering technique was utilized adhering to the principles of ALARA. COMPARISON STUDY: Chest CTA 03/23/2018. FINDINGS: Mild to moderate anterior wedge-shaped compression deformities at T5-T7. The T5 compression deformity new from the prior study. This is technically age-indeterminate but likely chronic. No sig nificant paravertebral soft tissue swelling. Healing right anterior sixth and seventh rib fractures. There are poststernotomy changes. Small amount of mucoid material within the bronchus intermedius. Th e remaining central airways are patent. No pneumothorax. Small left pleural effusion. A few linear de nsities at the lingula favor subsegmental atelectasis. There are also a few right basilar linear dens ities suggesting atelectasis or scarring. Left lower lobe basilar consolidation also likely represent s atelectasis secondary to the pleural effusion. There are few faint scattered groundglass densities within the perihilar locations. This could represent minimal inflammatory or congestive change. Retro grade flow of contrast into the IVC. The adrenal glands and visualized spleen are unremarkable. The h eart is normal in size. Stable single prominent upper right peritracheal lymph node. Otherwise, no me diastinal or hilar lymphadenopathy. Normal caliber thoracic aorta with no evidence for dissection. Sm all nonocclusive linear filling defect seen within a segmental and subsegmental branch of the right u pper lobe. This is best seen on images 140 and 136. This is consistent with a pulmonary embolus. Ther e is also a small pulmonary embolus versus artifact seen within a subsegmental branch of the lingula on image 120. IMPRESSION: 1. Small nonocclusive pulmonary embolus seen within a segmental/subsegmental branch of the right uppe r lobe as described above. This is technically age indeterminate but favors chronic thrombus. 2. There is a second filling defect within a subsegmental branch of the left lower lobe which could r epresent artifact. 3. Small left pleural effusion. 4. A few subtle patchy groundglass perihilar airspace opacities. This nonspecific could be due to mil d inflammatory or congestive change. 5. Healing right anterior sixth and seventh rib fractures. 6. Additional findings as described above. Electronically signed by: Deejay Yee M.D. 01/31/2019 4:58 PM
--- NOTE | 2019-01-31 19:37 | History & Physical Report ---
Date of Service January 31, 2019 Assessment & Plan (1) Pulmonary emboli: (2) Shortness of breath: Pt with reported green productive cough x 12 days. Seen by PCP on 01/24/19 and had a CXR with out pneumonia, was started on doxycycline for 7 days, to finish today. Reports that last week had large amount of sputum production and twice thought that there may have been some blood-tinged sputum. Patient states since being on doxycycline he has had decreased sputum production and cough however cough is still present. Yesterday Pt had outpatient thoracic and lumbar xrays and was supine and developed SOB while supine that persisted for approx 30 minutes after study. Reported SOB this morning also, however doesn't report SOB currently. D-Dimer >450 Bilateral Venous Doppler: negative for DVT CTA CHEST: 1. Small nonocclusive pulmonary embolus seen within a segmental/subsegmental branch of the right upper lobe as described above. This is technically age indeterminate but favors chronic thrombus. 2. There is a second filling defect within a subsegmental branch of the left lower lobe which could represent artifact. 3. Small left pleural effusion. 4. A few subtle patchy groundglass perihilar airspace opacities. This nonspecific could be due to mild inflammatory or congestive change. Noted that pt had CTA Chest 03/2018: Suboptimal evaluation of the pulmonary arterial tree secondary to contrast bolus timing and respiratory motion. Ill- defined apparent filling defects within a subsegmental right lower lobe and apical segment right upper lobe pulmonary arterial branch are equivocal for small pulmonary emboli or artifact. No central pulmonary emboli identified. At that time had negative venous dopplers of BLE. He was discharged home from ER. Denies hx anticoagulation. ?Acute PE. SOB probable multifactorial - possible PE, CHF, bronchitis -will start heparin IV -pulmonology consult, appreciate further recommendations -finish doxycycline course today (3) Thoracic compression fracture: Pt presented to ER with c/o mid back pain since 11/2018. Reports started after driving to [place] and has continued. He denies fall or known injury. He reports initially when his back pain started he felt like it radiated through to chest. Patient states was evaluated in [place] and had reported normal CXR and was diagnosed with pleurisy. Today In ER pt had CT CHEST which showed Mild to moderate anterior wedge-shaped compression deformities at T5-T7. The T5 compression deformity new from the prior study. This is technically age-indeterminate but likely chronic. No significant paravertebral soft tissue swelling. -acetaminophen and percocet prn pt. Pt reports tramadol caused confusion and hydrocodone caused nausea, however believes he has taken percocet in past and tolerated -pt with chronic orthopnea and do not feel he could tolerate prolonged supine position for MRI at this time - consider ortho consult (4) Acute on chronic diastolic (congestive) heart failure: Patient reports chronic bilateral lower extremity edema with left being greater than right. He states past week has noticed some increased lower extremity edema in the past 2 days has gained 6 pounds. He has metolazone 2.5 mg to use up to twice weekly as needed for weight gain greater than 5 pounds in 2 days. Patient states that has typical 5 pound weight gain in a couple of days that occurs every 1-1/2 weeks in which he takes metolazone with relief. Patient is also on Bumex 3 mg twice daily and spironolactone 25 mg daily. Patient reports did not take his Bumex yesterday as he knew he was going to be away from house and did not want to be urinating a lot. Patient reports chronically sleeps in recliner secondary to orthopnea. He does not feel his symptoms are worse than usual. Pt follows with Dr Sanchez hx SELWYN 03/2018: EF: 65%, Grade II diastolic dysfunction. -continue home regimen of diuretics -Bumex, spironolactone. Metolazone dose tomorrow morning -monitor I&O's -low sodium diet -if worsening consider more aggressive diuretics and further workup with echo and possible cardiology consult (5) Diabetes mellitus, type II: A1c: 8.0 on 01/14/19 -Hold Jardiance, home insulin -NovoLog sliding scale. Lantus sliding scale taking into account 80% dose of home Toujeo. -Monitor BSG's, may need to adjust insulin sliding scale (6) CAD (coronary artery disease): S/P CABG -Continue aspirin, statin, metoprolol (7) Rheumatoid arthritis: -Hold enbrel DVT Prophylaxis -On IV heparin Full Code as per discussion with pt Follows with Dr Bell for routine care Pt was seen with Dr Garcia. See addendum History of Present Illness Chief Complaint: Back pain Primary Care Provider: Rc Bell DO Pt is 73 y/o M with PMH DM II, CAD s/p CABG x 3, chronic diastolic heart failure, rheumatoid arthritis, Enbrel, hypothyroidism, left pleural effusion, pulmonary nodules, GUPTA presented to ER with complaint of mid back pain. Patient states that drove to [place] in the beginning of November. Upon arrival there he started having mid back pain. He reports initially when his back pain started he felt like it radiated through to chest. Patient states was evaluated there and had reported normal chest x-ray and was diagnosed with pleurisy. Patient states pain has continued. He denies falls or any other known injury. Denies history of prior back pain. Denies lower extremity weakness, paresthesias, saddle paresthesias, loss control bowel or bladder. Patient states drove back from [place] at the beginning of January 2019 and has continued back pain. Patient states approximately 12 days ago started with green productive cough. He was seen by PCP on 01/24/19 and had a chest x-ray with out pneumonia. Was started on doxycycline for 7 days, to finish today. Patient states last week had large amount of sputum production and twice last week thought that there may have been some blood-tinged sputum. Patient states since being on doxycycline he has had decreased sputum production and cough however cough is still present. Reports cough causing increased back pain. Patient reports chronic bilateral lower extremity edema with left being greater than right. He states past week has noticed some increased lower extremity edema in the past 2 days has gained 6 pounds. He has metolazone 2.5 mg to use up to twice weekly as needed for weight gain greater than 5 pounds in 2 days. He states he took this 3 days ago. Patient states that has typical 5 pound weight gain in a couple of days that occurs every 1-1/2 weeks in which she takes metolazone with relief. Patient is also on Bumex 3 mg twice daily and spironolactone 25 mg daily. Patient reports did not take his Bumex yesterday as he knew he was going to be away from house and did not want to be urinating a lot. Patient reports chronically sleeps in recliner secondary to orthopnea. Yesterday patient had outpatient x-ray thoracic spine and lumbar spine and patient states when had x-rays done he was supine and he became short of breath and had a hard time catching his breath for approximately 30 minutes after. P atient states also noticed some shortness of breath this morning. States throughout the day and this evening he is not feeling short of breath. He denies any chest pain. Denies fever/chills, diaphoresis, N/V/D/C, CABALLERO, dizziness, syncope, vision changes, neck pain, palpitations, sore throat, choking, otalgia, rhinorrhea, abdominal pain, rashes, urinary symptoms. Allergies Allergy/AdvReac Type Severity Reaction Status Date / Time tramadol AdvReac Severe confusion Verified 01/31/19 14:49 acetaminophen AdvReac Unknown nausea Verified 01/31/19 14:49 hydrocodone AdvReac Unknown nausea Verified 01/31/19 14:49 Home Medications Home Medications Medication Instructions Recorded Confirmed Type Enbrel 50 mg SUBCUT WK 01/31/19 01/31/19 History Toraegan SoloStar U-300 Insulin 36 unit SUBCUT BID 01/31/19 01/31/19 History aspirin [Aspirin Low Dose] 81 mg PO DAILY 01/31/19 01/31/19 History atorvastatin 80 mg PO PM 01/31/19 01/31/19 History baclofen 10 mg PO BID PRN 01/31/19 01/31/19 History bumetanide 1.5 tab PO BID 01/31/19 01/31/19 History cholecalciferol (vitamin D3) 1,000 unit PO DAILY 01/31/19 01/31/19 History [Vitamin D3] cyanocobalamin (vitamin B-12) 1,000 mcg PO DAILY 01/31/19 01/31/19 History [Vitamin B-12] doxazosin 2 mg PO DAILY 01/31/19 01/31/19 History empagliflozin 25 mg PO DAILY 01/31/19 01/31/19 History insulin lispro [Humalog KwikPen 32 unit SUBCUT DAILYBL 01/31/19 01/31/19 History Insulin] insulin lispro [Humalog KwikPen 32 unit SUBCUT UD 01/31/19 01/31/19 History Insulin] insulin lispro [Humalog KwikPen 35 unit SUBCUT DAILYBB 01/31/19 01/31/19 History Insulin] levothyroxine 75 mcg PO DAILY 01/31/19 01/31/19 History metolazone 2.5 mg PO DIRECTED 01/31/19 01/31/19 History metoprolol tartrate 50 mg PO BID 01/31/19 01/31/19 History nitroglycerin 0.4 mg SUBLINGUAL DIRECTED 01/31/19 01/31/19 History potassium chloride 20 meq PO QID 01/31/19 01/31/19 History spironolactone 25 mg PO DAILY 01/31/19 01/31/19 History guaifenesin 100 mg PO Q6H PRN #500 ml 02/01/19 Rx oxycodone 5 mg PO Q8H #20 tab 02/01/19 Rx Past Med/Surg History Medical History Rheumatoid arthritis (Chronic) Chronic diastolic heart failure (Chronic) Diabetes mellitus, type II (Chronic) Erythema migrans (Lyme disease) (Acute) CAD (coronary artery disease) (Chronic) Surgical History History of appendectomy (Chronic) Hx of CABG (Chronic) Family History Other Crohn's disease FH: throat cancer Social History Preferred Language: Vietnamese Beliefs That Will Affect Care: None Current Living Situation: Spouse Other Information That Helps Us Care for You: No Feels Safe at Home: Yes Safety Concerns: Feels Safe At This Time Smoking Status: Former smoker Hx Alcohol Use: Yes Hx Substance Use: No Review of Systems All systems reviewed & are unremarkable except as noted in HPI & below Physical Exam Vital Signs (Past 24 Hours): Last Vital Signs Temp 36.3 C L 01/31/19 12:58 Pulse 80 01/31/19 19:01 Resp 15 01/31/19 19:01 BP 153/86 H 01/31/19 19:01 Pulse Ox 95 01/31/19 19:01 Physical Exam: General: no acute distress, obese Head: normocephalic, atraumatic Eyes: PERRL, EOM's intact, conjunctiva non-injected, anicteric ENT: normal inspection external ears, nose, mucous membranes moist Neck: supple, trachea midline, non-tender, ROM intact Lungs: no respiratory distress, mild rales bases CV: RRR, 2+ pretibial edema Abd: normal BS, soft, non-tender Back: limited flexion and extension of back, +tenderness to palpation mid back Ext: chronic bilateral lower leg skin changes, non-tender, strength equal in upper and lower extremities Neuro: A&O x 3, no focal deficits noted, normal affect Skin: warm, dry Results & Data Laboratory Results Short CBC 01/31/19 Range/Units 14:35 WBC 8.00 (4.8-10.8) K/uL Hgb 14.9 (14.0-18.0) g/dL Hct 42.8 (42-52) % Plt Count 182 (130-400) K/uL BMP 01/31/19 14:35 Sodium 140 Potassium 4.0 Chloride 102 Carbon Dioxide 32 BUN 24 H Creatinine 0.89 Glucose 123 H Calcium 9.0 Cardiac Enzymes 01/31/19 Range/Units 14:35 Troponin I < 0.015 (0-0.045) ng/ml Liver Function 01/31/19 Range/Units 14:35 Total Bilirubin 1.3 H (0.2-1) mg/dl AST 19 (15-37) U/L ALT 23 (12-78) U/L Alkaline Phosphatase 143 H (45-117) U/L Albumin 3.5 (3.4-5.0) gm/dl POC D-DIMER >450 Diagnostic Findings CXR: IMPRESSION: No acute cardiopulmonary findings. CTA CHEST: IMPRESSION: 1. Small nonocclusive pulmonary embolus seen within a segmental/subsegmental branch of the right upper lobe as described above. This is technically age indeterminate but favors chronic thrombus. 2. There is a second filling defect within a subsegmental branch of the left lower lobe which could represent artifact. 3. Small left pleural effusion. 4. A few subtle patchy groundglass perihilar airspace opacities. This nonspecific could be due to mild inflammatory or congestive change. 5. Healing right anterior sixth and seventh rib fractures. 6. Additional findings as described above. VENOUS DOPPLER: IMPRESSION: No DVT within the right or left lower extremity. ECG Rhythm: normal sinus Findings: + T-wave inversion (inferior) Additional Comments: Cardiology read: Normal sinus rhythm Possible Anterior infarct (cited on or before 23-MAR-2018) Abnormal ECG When compared with ECG of 12-MAY-2018 08:24, Premature atrial complexes are no longer Present Borderline criteria for Inferior infarct are no longer Present T wave inversion now evident in Inferior leads Confirmed by LAVELL SANCHEZ ([id number]) on 01/31/2019 6:25:35 PM Supervising Physician Co-Signing Physician Notes HISTORY: Record reviewed. Patient interviewed and examined in his room. Care coordinated with Elise Blankenship PA-C. Please refer to her documentation for patient's history. Briefly, 73 YO male with history of CHF and other problems. Recent cough; treated for bronchitis. Presented to ED with back and chest pain, worsened by coughing. EXAM: General- no distress Lungs- clear to auscultation; no respiratory distress Cardiovascular- RRR; 2+ pretibial edema Abdomen- + bowel sounds, soft, nontender Extremities- no cyanosis; no calf tenderness Neuro- alert, oriented Skin- warm & dry DATA: CHEST X-RAY IMPRESSION: No acute cardiopulmonary findings. Electronically signed by: Krishan Cantu M.D. 01/31/2019 3:07 PM CTA CHEST IMPRESSION: 1. Small nonocclusive pulmonary embolus seen within a segmental/subsegmental branch of the right upper lobe as described above. This is technically age indeterminate but favors chronic thrombus. 2. There is a second filling defect within a subsegmental branch of the left lower lobe which could represent artifact. 3. Small left pleural effusion. 4. A few subtle patchy groundglass perihilar airspace opacities. This nonspecific could be due to mild inflammatory or congestive change. 5. Healing right anterior sixth and seventh rib fractures. 6. Additional findings as described above. Electronically signed by: Deejay Yee M.D. 01/31/2019 4:58 PM VENOUS DUPLEX LOWER EXTREMITIES IMPRESSION: No DVT within the right or left lower extremity. Electronically signed by: Deejay Yee M.D. 01/31/2019 4:20 PM ASSESSMENT AND PLAN: Possible pulmonary emboli, but one appears to be chronic and other is small / equivocal. No apparent DVT lower extremities. Anticoagulation may or may not be indicated. Will start IV heparin tonight and consult Pulmonary Medicine for further recommendations. CHF chronic / unchanged. Please refer to EZRA Schilling's documentation for discussion of other issues. (1) Pulmonary emboli Chronicity: unspecified Pulmonary embolism type: unspecified
[2019-01-31] MEDS ORDERED: OXYCODONE HCL IR 5 MG TAB (IMMEDIATE RELEASE) PO PRN (20:24)
--- NOTE | 2019-01-31 20:47 | Emergency Department Note ---
Entered by Tamanna Lopez acting as a scribe for ED Provider Note CHIEF COMPLAINT: Shortness of breath HISTORY OF PRESENT ILLNESS: The patient is a 73 year old male who presents to the Emergency Room with co mplaints of constant shortness of breath that started yesterday. The patient reports he went in for x-ray yesterday and had to lie flat and has been having shortness of breath since then. He states he was fine while lying flat but when he got up he started experiencing shortness of breath. The patient reports he gained 6 pounds in 2 days and is retaining fluid. He notes he has history of CABG, coronary disease and diastolic heart failure. The patient reports he has no history of blood clots. He states his shortness of breath is worsened with cough. Pt denies LOC, headache, fevers, chills, diaphoresis, visual changes, neck pain, chest pain, nausea, vomiting, abdominal pain, back pain, melena, hematochezia, urinary symptoms, numbness, weakness, lymphadenopathy, rash, or other complaints. REVIEW OF SYSTEMS: See HPI for pertinent positives and negatives. A total of ten systems were reviewed and were otherwise negative. PMHx/PSHx: CABG Coronary disease Diastolic heart failure SOCIAL HISTORY: Patient lives at home. PHYSICAL EXAM: GENERAL: Awake, alert, uncomfortable-appearing, in no distress HENT: Normocephalic, atraumatic. Oropharynx unremarkable. EYES: Normal conjunctiva. Sclera non-icteric. NECK: Inspection normal. Non-tender. Supple. No nuchal rigidity. FROM. No masses. RESPIRATORY: Clear to auscultation. No wheezes. No rales. Normal respiratory effort. CARDIAC: Normal rate. Normal rhythm. No murmurs. No rubs. Extremities warm and well perfused. Pulses equal. No JVD. GI: Soft, non-distended. No tenderness to palpation. No rebound or guarding. No masses. RECTAL: Deferred. MUSCULOSKELETAL: Atraumatic. Chest examination reveals no tenderness. The back is symmetrical on inspection without obvious abnormality. There is no CVA tenderness to palpation. No joint edema. LOWER EXTREMITIES: Calves are equal size bilaterally and non-tender. 3+ left and 2+ right edema. No discoloration. NEURO: Normal sensorium. No sensory or motor deficits noted. SKIN: No rash or jaundice noted. EMERGENCY DEPARTMENT COURSE: 1421: Past medical records reviewed. The patient has had back pain since November and upper respiratory infection that was treated with antibiotics. The patient went in for x-ray yesterday and has been having shortness of breath since lying flat. 1422: The patient was evaluated in room C2A, and a complete history and physical examination were performed. 1528: I checked on the patient. The patient is in imaging. 1744: I reviewed the patient's case with Dr. Irvin and Dr. Vito Garcia. They will evaluate the patient for further management. MEDICAL DECISION MAKING: Triage Nursing notes reviewed and agree them. Additional history obtained from the patient's . The patient's history was concerning for shortness of breath, back pain, recent antibiotic use, lower extremity edema. Differential diagnosis: Etiologies such as pneumonia, COPD, reactive airway disease, CHF, cardiac ischemia, pulmonary embolism, pneumothorax, musculoskeletal, infections, gastrointestinal, as well as others were entertained. Physical examination: As above. Patient was not hypoxic. He had lower extremity edema with asymmetry. ER treatment provided: No medication given by me. Patient declined analgesia On reassessment the patient was stable. Diagnostic interpretation by me: The electrocardiogram was negative for pathologic change. The labs revealed an unremarkable CBC and chemistry panel. Troponin negative. BMP within normal limits. [id number] d-dimer was markedly elevated. Imaging studies: Chest x-ray imaging was negative. CT imaging revealed several small pulmonary emboli, thoracic compression fracture, pleural effusion, and mild pneumonitis. Consultation: A consultation was placed with the hospitalist. The case was discussed and diagnostics were reviewed. The patient was evaluated in the ER for further treatment. Given the constellation of findings it was felt that admission to the hospital would be most appropriate. The patient was initially reluctant but then agreed. IV heparin was initiated by the hospitalist service. IMPRESSION: Shortness of breath Thoracic compression fracture Pulmonary emboli Lower extremity edema PLAN: Admitted The scribe's documentation has been prepared under my direction and personally reviewed by me in its entirety. I confirm that the note above accurately reflec ts all work, treatment, procedures, and medical decision making performed by me. Impression & Plan Shortness of breath, Pulmonary emboli, Thoracic compression fracture, Lower extremity edema Past Med/Surg History Medical History Rheumatoid arthritis (Chronic) Chronic diastolic heart failure (Chronic) Diabetes mellitus, type II (Chronic) Erythema migrans (Lyme disease) (Acute) CAD (coronary artery disease) (Chronic) Surgical History History of appendectomy (Chronic) Hx of CABG (Chronic) Family History Other Crohn's disease FH: throat cancer Social History Feels Safe at Home: Yes Smoking Status: Former smoker Hx Alcohol Use: No Hx Substance Use: No Results & Data Vital Signs Vital Signs - 24 hr 01/31/19 12:58 01/31/19 13:35 01/31/19 14:07 Temperature 36.3 C L Temperature Source Oral Sepsis Recent Fever Within 48 Hours No Sepsis New/Unexplained Change in Mental Status No Sepsis Action Taken by Nursing No Action Required Pulse Rate 88 Pulse Rate [Apical] Pulse Rate from SpO2 Sensor Pulse Rhythm [Apical] Respiratory Rate 20 Respiratory Effort / Characteristics Respiratory Depth Normal Blood Pressure 162/95 H Blood Pressure [Right Arm] Blood Pressure Mean 117 Blood Pressure Mean [Right Arm] Pulse Oximetry 96 Oxygen Delivery Method Room Air Room Air Room Air 01/31/19 14:50 01/31/19 17:09 01/31/19 17:31 Temperature Temperature Source Sepsis Recent Fever Within 48 Hours Sepsis New/Unexplained Change in Mental Status Sepsis Action Taken by Nursing Pulse Rate 84 Pulse Rate [Apical] 84 Pulse Rate from SpO2 Sensor 84 Pulse Rhythm [Apical] Regular Respiratory Rate 22 15 19 Respiratory Effort / Characteristics Non-Labored Respiratory Depth Normal Blood Pressure 124/67 Blood Pressure [Right Arm] 115/60 152/84 H Blood Pressure Mean 86 Blood Pressure Mean [Right Arm] 78 106 Pulse Oximetry 97 96 97 Oxygen Delivery Method Room Air Room Air Room Air 01/31/19 18:01 01/31/19 18:31 01/31/19 19:01 Temperature Temperature Source Sepsis Recent Fever Within 48 Hours Sepsis New/Unexplained Change in Mental Status Sepsis Action Taken by Nursing Pulse Rate 88 90 80 Pulse Rate [Apical] Pulse Rate from SpO2 Sensor 88 89 79 Pulse Rhythm [Apical] Respiratory Rate 16 12 15 Respiratory Effort / Characteristics Respiratory Depth Blood Pressure 124/89 142/98 H 153/86 H Blood Pressure [Right Arm] Blood Pressure Mean 100 112 108 Blood Pressure Mean [Right Arm] Pulse Oximetry 98 95 95 Oxygen Delivery Method Room Air Home Medications Current Medication List: was personally reviewed by me Laboratory Data Attestation: I reviewed the patient's lab results. Result diagrams: 01/31/19 14:35 03/22/19 14:35 Lab Results 01/31/19 01/31/19 01/31/19 Range/Units 14:35 14:35 14:35 WBC 8.00 (4.8-10.8) K/uL RBC 4.57 L (4.7-6.1) M/uL Hgb 14.9 (14.0-18.0) g/dL Hct 42.8 (42-52) % MCV 93.7 (80-100) fL MCH 32.6 (25-34) pg MCHC 34.8 (32-36) g/dL RDW Std Deviation 47.3 H (36.4-46.3) fL RDW Coeff of Servando 13.9 (11.5-14.5) % Plt Count 182 (130-400) K/uL MPV 9.4 (7.4-10.4) fL Immature Gran % (Auto) 0.5 % Neut % (Auto) 68.0 % Lymph % (Auto) 17.3 % Cascade % (Auto) 10.4 % Eos % (Auto) 2.9 % Baso % (Auto) 0.9 % Immature Gran # (Auto) 0.04 H (0.00-0.02) K/uL Neut # (Auto) 5.45 (1.4-6.5) K/uL Lymph # (Auto) 1.38 (1.2-3.4) K/uL Cascade # (Auto) 0.83 H (0.11-0.59) K/uL Eos # (Auto) 0.23 (0-0.5) K/uL Baso # (Auto) 0.07 (0-0.2) K/uL PT 11.4 (9.0-12.0) Seconds INR 1.1 (0.9-1.1) APTT 26.4 (21.0-31.0) Seconds PTT Ratio 1.0 POC D-Dimer (0-450) ng/mlFEU D-Dimer Sodium 140 (136-145) mmol/L Potassium 4.0 (3.5-5.1) mmol/L Chloride 102 (98-107) mmol/L Carbon Dioxide 32 (21-32) mmol/L Anion Gap 6.0 (3-11) BUN 24 H (7-18) mg/dl Creatinine 0.89 (0.6-1.4) mg/dl Est Cr Clr Drug Dosing 100.8 ml/min Est GFR ( Amer) 99.0 Est GFR (Non-Af Amer) 85.4 BUN/Creatinine Ratio 27.1 H (10-20) Glucose 123 H (70-99) mg/dl Calcium 9.0 (8.5-10.1) mg/dl Total Bilirubin 1.3 H (0.2-1) mg/dl AST 19 (15-37) U/L ALT 23 (12-78) U/L Alkaline Phosphatase 143 H (45-117) U/L Troponin I < 0.015 (0-0.045) ng/ml NT-Pro-B Natriuret Pep (0-900) pg/ml Total Protein 8.1 (6.4-8.2) gm/dl Albumin 3.5 (3.4-5.0) gm/dl Globulin 4.6 H (2.5-4.0) gm/dl Albumin/Globulin Ratio 0.8 L (0.9-2) 01/31/19 01/31/19 01/31/19 Range/Units 14:35 19:17 19:28 WBC (4.8-10.8) K/uL RBC (4.7-6.1) M/uL Hgb (14.0-18.0) g/dL Hct (42-52) % MCV (80-100) fL MCH (25-34) pg MCHC (32-36) g/dL RDW Std Deviation (36.4-46.3) fL RDW Coeff of Servando (11.5-14.5) % Plt Count (130-400) K/uL MPV (7.4-10.4) fL Immature Gran % (Auto) % Neut % (Auto) % Lymph % (Auto) % Cascade % (Auto) % Eos % (Auto) % Baso % (Auto) % Immature Gran # (Auto) (0.00-0.02) K/uL Neut # (Auto) (1.4-6.5) K/uL Lymph # (Auto) (1.2-3.4) K/uL Cascade # (Auto) (0.11-0.59) K/uL Eos # (Auto) (0-0.5) K/uL Baso # (Auto) (0-0.2) K/uL PT (9.0-12.0) Seconds INR (0.9-1.1) APTT (21.0-31.0) Seconds PTT Ratio POC D-Dimer > 450 H* (0-450) ng/mlFEU D-Dimer Cancelled Sodium (136-145) mmol/L Potassium (3.5-5.1) mmol/L Chloride (98-107) mmol/L Carbon Dioxide (21-32) mmol/L Anion Gap (3-11) BUN (7-18) mg/dl Creatinine (0.6-1.4) mg/dl Est Cr Clr Drug Dosing ml/min Est GFR ( Amer) Est GFR (Non-Af Amer) BUN/Creatinine Ratio (10-20) Glucose (70-99) mg/dl Calcium (8.5-10.1) mg/dl Total Bilirubin (0.2-1) mg/dl AST (15-37) U/L ALT (12-78) U/L Alkaline Phosphatase (45-117) U/L Troponin I (0-0.045) ng/ml NT-Pro-B Natriuret Pep 177 (0-900) pg/ml Total Protein (6.4-8.2) gm/dl Albumin (3.4-5.0) gm/dl Globulin (2.5-4.0) gm/dl Albumin/Globulin Ratio (0.9-2) Administered Medications Ioversol (Optiray 320 125ml) 102 ml IV ONCE PRN PRN Reason: Interaction Checking Stop: 02/04/19 16:40 Last Admin: 01/31/19 16:41 Dose: 102 ml Documented by: [id number] Imaging Data Radiologist's Impression: Radiology results as stated below per my review and the radiologist's interpretation: XR chest 1V portable CLINICAL HISTORY: Shortness of breath. COMPARISON STUDY: Chest radiograph and chest CT March 23, 2018. FINDINGS: There are median sternotomy wires and mediastinal surgical clips. There is no pneumothorax or pleural effusion. There is no consolidation or evidence for pulmonary edema. Linear left midlung opacity suggest atelectasis. Cardiomegaly is unchanged. The appearance of the chest is unchanged. IMPRESSION: No acute cardiopulmonary findings. Electronically signed by: Krishan Cantu M.D. 01/31/2019 3:07 PM CHEST CTA for PULMONARY ARTERIES CT DOSE: 688.17 mGy.cm HISTORY: Right pleuritic chest pain and short of breath TECHNIQUE: Multiaxial CT images of the chest were performed following the intravenous administration of contrast to evaluate the pulmonary arteries. Maximal intensity projection images were also obtained. A dose lowering technique was utilized adhering to the principles of ALARA. COMPARISON STUDY: Chest CTA 03/23/2018. FINDINGS: Mild to moderate anterior wedge-shaped compression deformities at T5- T7. The T5 compression deformity new from the prior study. This is technically age-indeterminate but likely chronic. No significant paravertebral soft tissue swelling. Healing right anterior sixth and seventh rib fractures. There are poststernotomy changes. Small amount of mucoid material within the bronchus intermedius. The remaining central airways are patent. No pneumothorax. Small left pleural effusion. A few linear densities at the lingula favor subsegmental atelectasis. There are also a few right basilar linear densities suggesting atelectasis or scarring. Left lower lobe basilar consolidation also likely represents atelectasis secondary to the pleural effusion. There are few faint scattered groundglass densities within the perihilar locations. This could represent minimal inflammatory or congestive change. Retrograde flow of contrast into the IVC. The adrenal glands and visualized spleen are unremarkable. The heart is normal in size. Stable single prominent upper right peritracheal lymph node. Otherwise, no mediastinal or hilar lymphadenopathy. Normal caliber thoracic aorta with no evidence for dissection. Small nonocclusive linear filling defect seen within a segmental and subsegmental branch of the right upper lobe. This is best seen on images 140 and 136. This is consistent with a pulmonary embolus. There is also a small pulmonary embolus versus artifact seen within a subsegmental branch of the lingula on image 120. IMPRESSION: 1. Small nonocclusive pulmonary embolus seen within a segmental/subsegmental branch of the right upper lobe as described above. This is technically age in determinate but favors chronic thrombus. 2. There is a second filling defect within a subsegmental branch of the left lower lobe which could represent artifact. 3. Small left pleural effusion. 4. A few subtle patchy groundglass perihilar airspace opacities. This nonspecific could be due to mild inflammatory or congestive change. 5. Healing right anterior sixth and seventh rib fractures. 6. Additional findings as described above. Electronically signed by: Deejay Yee M.D. 01/31/2019 4:58 PM BILATERAL LOWER EXTREMITY VENOUS DOPPLER HISTORY: Lower extremity swelling. COMPARISON STUDY: None. FINDINGS: There is normal compressibility, flow, and augmentation within the bilateral lower extremity deep venous systems. IMPRESSION: No DVT within the right or left lower extremity. Electronically signed by: Deejay Yee M.D. 01/31/2019 4:20 PM ECG Data Attestation: I personally reviewed and interpreted this ECG as follows: Indication: SOB/dyspnea Rate (beats per minute): 83 Rhythm: normal sinus Findings: + other (Poor R wave progression anteriorly); no PAC, no PVC, no ST depression and no ST elevation Blood Pressure Blood Pressure Findings: Normal blood pressure Blood Pressure Disposition: did not require urgent referral Discharge Plan Visit Data Chief Complaint: Shortness of Breath/Dyspnea Stated Complaint: REFERRED BY DOCTOR - SOB,PAIN IN BACK ED Provider: Vito Del Toro Discharge Problem: Shortness of breath, Pulmonary emboli, Thoracic compression fracture, Lower extremity edema Forms Stand Alone Forms: My [facility] Prescriptions Prescriptions: No Action metolazone 2.5 mg Tablet 2.5 mg PO DIRECTED RF: 0 cyanocobalamin (vitamin B-12) [Vitamin B-12] 1,000 mcg Tablet Extended Release 1,000 mcg PO DAILY RF: 0 atorvastatin 80 mg Tablet 80 mg PO PM RF: 0 aspirin [Aspirin Low Dose] 81 mg Tablet,Delayed Release (Dr/Ec) 81 mg PO DAILY RF: 0 spironolactone 25 mg Tablet 25 mg PO DAILY RF: 0 levothyroxine 75 mcg Tablet 75 mcg PO DAILY RF: 0 metoprolol tartrate 50 mg Tablet 50 mg PO BID RF: 0 nitroglycerin 0.4 mg Tablet, Sublingual 0.4 mg sublingual DIRECTED RF: 0 doxazosin 2 mg tablet 2 mg PO DAILY RF: 0 insulin lispro [Humalog KwikPen Insulin] 100 unit/mL Insulin Pen 35 unit SUBCUT DAILYBB RF: 0 insulin lispro [Humalog KwikPen Insulin] 100 unit/mL Insulin Pen 32 unit SUBCUT DAILYBL RF: 0 Enbrel 50 mg/mL (0.98 mL) Syringe 50 mg SUBCUT WK RF: 0 cholecalciferol (vitamin D3) [Vitamin D3] 1,000 unit Tablet 1,000 unit PO DAILY RF: 0 potassium chloride 20 mEq Tablet Extended Release 20 meq PO QID RF: 0 empagliflozin 25 mg Tablet 25 mg PO DAILY RF: 0 bumetanide 2 mg Tablet 1.5 tab PO BID RF: 0 baclofen 10 mg Tablet 10 mg PO BID PRN (Reason: Muscle Spasm) RF: 0 insulin lispro [Humalog KwikPen Insulin] 100 unit/mL Insulin Pen 32 unit SUBCUT UD RF: 0 Toujeo SoloStar U-300 Insulin 300 unit/mL (1.5 mL) Insulin Pen 36 unit SUBCUT BID RF: 0 doxycycline hyclate 100 mg Capsule 100 mg PO BID RF: 0 Discharge Problem: Pulmonary emboli Qualifiers: Pulmonary embolism type: unspecified Chronicity: unspecified The scribe's documentation has been prepared under my direction and personally reviewed by me in its entirety. I confirm that the note above accurately reflects all work, treatment, procedures, and medical decision making performed by me.
[2019-01-31] MEDS ORDERED: HEPARIN SOD (PORCINE) 1000 UNIT/ML 10 ML VIAL ONE (21:07)
[2019-01-31] MEDS ORDERED: HEPARIN 25000 UNIT/500 ML D5W IV ONE (21:08)
[2019-01-31] MEDS ORDERED: HEPARIN SODIUM/DEXTROSE 25,000 UNITS/500 ML BAG IV SCH (21:30)
[2019-01-31] MEDS ORDERED: ACETAMINOPHEN 325 MG TAB PO PRN (21:40)
[2019-01-31] MEDS ORDERED: GLUCAGON FOR INJ 1 MG VIAL SQ PRN (21:40)
[2019-01-31] MEDS ORDERED: POLYETHYLENE (MIRALAX) 17 GM PACK PO PRN (21:40)
[2019-01-31] MEDS ORDERED: GLUCOSE 40% GEL 15 GM TUBE PO PRN (21:40)
[2019-01-31] MEDS ORDERED: ONDANSETRON INJ 2 MG/ML 2 ML VIAL IV PRN (21:40)
[2019-01-31] MEDS ORDERED: GLUCOSE 10 TABS/TUBE PO PRN (21:40)
[2019-01-31] MEDS ORDERED: NITROGLYCERIN SL 0.4 MG/TAB TAB SL PRN (21:40)
[2019-01-31] MEDS ORDERED: DEXTROSE 50% 50 ML SYRINGE IV PRN (21:40)
[2019-01-31] MEDS ORDERED: CARBOHYDRATES FOR HYPOGLYCEMIA PO PRN (21:40)
[2019-01-31] MEDS ORDERED: DOXYCYCLINE HYCLATE 100 MG CAP PO SCH (22:00)
[2019-01-31] MEDS: BUMETANIDE 1 MG TAB PO SCH ×2 (22:10→22:29)
[2019-01-31] MEDS: INSULIN GLARGINE SOLOSTAR 100 UNITS/ML 3 ML PEN SC SCH (22:24)
[2019-01-31] MEDS: INSULIN ASPART 100 UNITS/ML 3 ML PEN SC SCH (22:27)
[2019-02-01 03:46] LABS: Hematocrit (blood only) 40.6 % (42-52); Hemoglobin 14.1 g/dL (14.0-18.0); Mean Corpuscular Hgb Conc 34.7 g/dL (32-36); Mean Corpuscular Volume 92.3 fL (80-100); Mean Platelet Volume 9.4 fL (7.4-10.4); Platelet Count 183 K/uL (130-400); RDW Standard Deviation 47.1 fL (36.4-46.3)
[2019-02-01 04:01] LABS: BUN Creatinine Ratio 26.8 (10-20); Calcium 8.9 mg/dl (8.5-10.1); Creatinine Clr Calc Pharmacy 113.5 ml/min; Est GFR (Non-African American) 89.7; Partial Thromboplastin Ratio 4.2; Potassium 3.7 mmol/L (3.5-5.1)
[2019-02-01 04:11] LABS: Partial Thromboplastin Time 112.7 Seconds (21.0-31.0)
[2019-02-01] MEDS: INSULIN GLARGINE SOLOSTAR 100 UNITS/ML 3 ML PEN SC SCH (08:15)
[2019-02-01] MEDS: BUMETANIDE 1 MG TAB PO SCH (08:15)
[2019-02-01] MEDS: INSULIN ASPART 100 UNITS/ML 3 ML PEN SC SCH ×2 (08:16→12:46)
[2019-02-01] MEDS ORDERED: metOLazone 2.5 MG TABLET PO SCH (09:00)
[2019-02-01] MEDS ORDERED: SPIRONOLACTONE 25 MG TAB PO SCH (09:00)
[2019-02-01 11:33] LABS: Partial Thromboplastin Ratio 2.1
[2019-02-01 11:43] LABS: Partial Thromboplastin Time 56.8 Seconds (21.0-31.0)
[2019-02-01 12:00] VITALS: PULSE 94; TEMP 97.7; O2SAT 93
[2019-02-01] MEDS ORDERED: POTASSIUM CHLORIDE 20 MEQ TABCR PO ONE (12:46)
[2019-02-01] MEDS ORDERED: METOPROLOL TARTRATE 50 MG TAB PO ONE (13:10)
--- NOTE | 2019-02-01 13:20 | Pulmonary Consultation ---
Date of Consultation February 01, 2019 Assessment & Plan (1) Chronic diastolic heart failure: Impression: 1. No evidence of acute PE nor chronic PE, the findings likely representing post CABG changes, I am not sure about the right upper lobe filling defect which is not consistent on several collimation. I did not appreciate left inferior pulmonary artery branch filling defect. 2. Diastolic heart failure by definition in this patient who has a history, significant weight gain. The patient stopped taking his diuretics for the past 5 days. 3. Morbid obesity, possible sleep breathing disorder contributing to it. 4. History of rheumatoid arthritis, does not effect the lung. Plan: 1. Aggressive diuresis. Bumex drip is preferable. 2. Discontinue heparin drip. No need for anticoagulation. 3. Continue DVT prophylaxis only. 4. Obtain echocardiogram. 5. D-dimer is acute phase reactant, and in this patient does not correlate with the clinical picture. 6. I agree with your workup and plan, the patient will continue to be at risk for venous thromboembolic event given his cardiac history morbid obesity and immobility. Thank you History of Present Illness Reason for Consultation: PE Requesting Physician: Dr. Garcia Attending Physician: Vito Garcia MD History of Present Illness Dear Dr. Garcia: Thank you very kind referral of Mr. Perez to pulmonary service. This is a 73-year-old gentleman with history of coronary artery disease status post CABG done at [facility] in [place] on February 2018, has been maintained on his cardiac regimen, he does have follow-up with cardiology on a regular basis where he has been evaluated and treated for CHF. The patient for the past several days on his presentation had significant mid back pain that has been persistent. Workup revealed compression fracture at T10, similar findings also on a CAT scan done in March 2018. Incidental finding was found to have small filling defect at the subdivision of the superior pulmonary artery branch on the right. Similar to the previous as well. The patient denies any cough or hemoptysis, no dizziness or palpitation, he does have significant increase in the swelling of his lower extremities. He has gained approximately 20 pounds after he stopped taking Lasix recently. He was switched to Bumex in addition to Zaroxolyn. He did not take his Bumex also for 5 days. Patient claims shortness of breath, with orthopnea, no nocturnal symptoms. No chest pain. The rest of his review of system otherwise was unremarkable. The patient denies any pain in his lower extremities. Allergies Allergy/AdvReac Type Severity Reaction Status Date / Time tramadol AdvReac Severe confusion Verified 01/31/19 14:49 acetaminophen AdvReac Unknown nausea Verified 01/31/19 14:49 hydrocodone AdvReac Unknown nausea Verified 01/31/19 14:49 Home Medications Home Medications Medication Instructions Recorded Confirmed Type aspirin [Aspirin Low Dose] 81 mg PO DAILY 01/31/19 01/31/19 History atorvastatin 80 mg PO PM 01/31/19 01/31/19 History baclofen 10 mg PO BID PRN 01/31/19 01/31/19 History bumetanide 1.5 tab PO BID 01/31/19 01/31/19 History cholecalciferol (vitamin D3) 1,000 unit PO DAILY 01/31/19 01/31/19 History [Vitamin D3] cyanocobalamin (vitamin B-12) 1,000 mcg PO DAILY 01/31/19 01/31/19 History [Vitamin B-12] doxazosin 2 mg PO DAILY 01/31/19 01/31/19 History doxycycline hyclate 100 mg PO BID 01/31/19 01/31/19 History empagliflozin 25 mg PO DAILY 01/31/19 01/31/19 History etanercept [Enbrel] 50 mg SUBCUT WK 01/31/19 01/31/19 History insulin glargine U-300 conc 36 unit SUBCUT BID 01/31/19 01/31/19 History [Touosorioo SoloStar U-300 Insulin] insulin lispro [Humalog KwikPen 32 unit SUBCUT DAILYBL 01/31/19 01/31/19 History Insulin] insulin lispro [Humalog KwikPen 32 unit SUBCUT UD 01/31/19 01/31/19 History Insulin] insulin lispro [Humalog KwikPen 35 unit SUBCUT DAILYBB 01/31/19 01/31/19 History Insulin] levothyroxine 75 mcg PO DAILY 01/31/19 01/31/19 History metolazone 2.5 mg PO DIRECTED 01/31/19 01/31/19 History metoprolol tartrate 50 mg PO BID 01/31/19 01/31/19 History nitroglycerin 0.4 mg SUBLINGUAL DIRECTED 01/31/19 01/31/19 History potassium chloride 20 meq PO QID 01/31/19 01/31/19 History spironolactone 25 mg PO DAILY 01/31/19 01/31/19 History Patient History Medical History Rheumatoid arthritis (Chronic) Chronic diastolic heart failure (Chronic) Diabetes mellitus, type II (Chronic) Erythema migrans (Lyme disease) (Acute) CAD (coronary artery disease) (Chronic) Surgical History History of appendectomy (Chronic) Hx of CABG (Chronic) Family History Other Crohn's disease FH: throat cancer Social History Preferred Language: Italian Communication Ability: Effective Erosion Control Specialist Required: No Beliefs That Will Affect Care: None Current Living Situation: Spouse Other Information That Helps Us Care for You: No Feels Safe at Home: Yes Safety Concerns: Feels Safe At This Time Smoking Status: Former smoker Hx Alcohol Use: Yes Hx Substance Use: No Review of Systems 14 systems has been reviewed apart from the above were unremarkable. Physical Exam Vital Signs (Past 24 Hours): Last Vital Signs Temp 36.5 C 02/01/19 11:58 Pulse 94 H 02/01/19 11:58 Resp 17 02/01/19 11:58 BP 133/83 02/01/19 11:58 Pulse Ox 93 02/01/19 11:58 Physical Exam: Morbidly obese gentleman, speaks in full sentences, does not appear to be in distress at rest, positive JVP, mid sternal scar from previous CABG, S1-S2 regular rate and rhythm, distant breath sounds bilaterally, abdomen is benign, 4+ edema in the periphery, venous stasis changes noted, neurologically is intact. No cyanosis and no clubbing. Results & Data Laboratory Results Labs were reviewed which showed normal leukocytes, hematocrit is stable, and platelet count is also stable. His d-dimer was elevated but his PTT was 56. Diagnostic Findings CAT scan of the chest which I reviewed personally showed persistent left pleural effusion, no evidence of filling defect on the left, and on the right is very faint nonspecific filling defect that presented also on March 2018. I do not have the results of previous echo on this patient.
[2019-02-01] MEDS ORDERED: HEPARIN SOD 5,000 UNIT/0.5 ML VIAL SQ SCH (14:00)
[2019-02-01] MEDS ORDERED: OXYCODONE IR HOME PACK PO ONE (16:00)
[2019-02-01 16:04] VITALS: BP 137/87
--- NOTE | 2019-02-01 21:49 | Hospitalist Progress Note ---
Date of Service February 01, 2019 Assessment & Plan (1) Pulmonary emboli: CTA chest demonstrated: "Small nonocclusive pulmonary embolus seen within a segmental/subsegmental branch of the right upper lobe as described above. This is technically age indeterminate but favors chronic thrombus." "There is a second filling defect within a subsegmental branch of the left lower lobe which could represent artifact." Venous duplex lower extremities negative for DVT. IV heparin initiated pending further consultation. Pulmonary Medicine consulted. No evidence for acute pulmonary embolism; no need for anticoagulation. (2) Chronic diastolic heart failure: Chronic left ventricular diastolic heart failure and right-sided heart failure, followed by Cardiology. No overt pulmonary edema on chest x-ray. Chronic dependent edema. Pro- BNP normal. IV diuretic therapy offered. Patient prefers to be discharged on usual regimen. (3) CAD (coronary artery disease): No anginal symptoms. Troponin negative. Continue usual meds. (4) Cough: Recent onset cough. Treated with doxycycline- completed 7 day course. Still has chest congestion and productive cough. Afebrile. No leukocytosis. Oxygenating well on RA. No infiltrates appreciated on chest x-ray (only left mid lung atelectasis noted). CTA chest demonstrated "few subtle patchy groundglass perihilar airspace opaci ties. This nonspecific could be due to mild inflammatory or congestive change." Suspect bronchitis with postbronchitis cough. No apparent need for additional antibiotics at this time. Best to avoid steroids if possible because of DM. Best not to suppress cough. Guaifenesin PRN. Further evaluation if symptoms persist or worsen. (5) Diabetes mellitus, type II: Random glucose on admission 123. Usually uses Toujeo at home. Lantus ordered, but pt preferred not to take it. Received NovoLog. FBS morning of discharge 133. Continue usual regimen. (6) Thoracic compression fracture: CTA chest demonstrated mild to moderate anterior wedge-shaped compression deformities of T5-T7, age-indeterminate. Healing anterior fractures of right 6th and 7th ribs noted. Compression fractures could be secondary to recent coughing. Patient attributes rib fractures to leaning over console in car. Given Rx for oxycodone for back pain 5 mg q 8 hrs PRN # 20. Suspect that patient has been on steroids in past for RA. Outpatient evaluation for osteoporosis recommended. (7) Rib fractures: As discussed above. (8) Rheumatoid arthritis: Continue etanercept. (9) DVT prophylaxis: Received IV heparin for possible PE's. (10) Discharge planning issues: Discharge to home. Internal Medicine follow-up with Dr. Bell. Cardiology follow-up with Dr. Pathak. Subjective Recheck for multiple problems. Patient seen in their room around 1410. Family visiting. Still having some back pain with coughing. Cough productive of yellowish sputum. No fever. Feels SOB when coughing, but otherwise not. No anginal symptoms or pleuritic chest pain. Chronic dependent edema. Physical Exam Vital Signs (Past 24 Hours): Last Vital Signs Temp 36.5 C 02/01/19 16:04 Pulse 94 H 02/01/19 16:04 Resp 17 02/01/19 16:04 BP 137/87 02/01/19 16:04 Pulse Ox 93 02/01/19 16:04 Physical Exam: General- no distress Lungs- clear to auscultation; no respiratory distress Cardiovascular- RRR; 2-3+ pretibial edema Abdomen- + bowel sounds, soft, nontender Extremities- no cyanosis; no calf tenderness Neuro- alert, oriented Skin- warm & dry (1) Pulmonary emboli Chronicity: unspecified Pulmonary embolism type: unspecified
--- NOTE | 2019-02-02 08:17 | Discharge Summary ---
Date of Service Date of admission: 01/31/19 Date of discharge: 02/01/19 Admission HPI Per Admitting Provider Pt is 73 y/o M with PMH DM II, CAD s/p CABG x 3, chronic diastolic heart failure, rheumatoid arthritis, Enbrel, hypothyroidism, left pleural effusion, pulmonary nodules, GUPTA presented to ER with complaint of mid back pain. Patient states that drove to [place] in the beginning of November. Upon arrival there he started having mid back pain. He reports initially when his back pain started he felt like it radiated through to chest. Patient states was evaluated there and had reported normal chest x-ray and was diagnosed with pleurisy. Patient states pain has continued. He denies falls or any other known injury. Denies history of prior back pain. Denies lower extremity weakness, paresthesias, saddle paresthesias, loss control bowel or bladder. Patient states drove back from [place] at the beginning of January 2019 and has continued back pain. Patient states approximately 12 days ago started with green productive cough. He was seen by PCP on 01/24/19 and had a chest x-ray with out pneumonia. Was started on doxycycline for 7 days, to finish today. Patient states last week had large amount of sputum production and twice last week thought that there may have been some blood-tinged sputum. Patient states since being on doxycycline he has had decreased sputum production and cough however cough is still present. Reports cough causing increased back pain. Patient reports chronic bilateral lower extremity edema with left being greater than right. He states past week has noticed some increased lower extremity edema in the past 2 days has gained 6 pounds. He has metolazone 2.5 mg to use up to twice weekly as needed for weight gain greater than 5 pounds in 2 days. He states he took this 3 days ago. Patient states that has typical 5 pound weight gain in a couple of days that occurs every 1-1/2 weeks in which she takes metolazone with relief. Patient is also on Bumex 3 mg twice daily and spironolactone 25 mg daily. Patient reports did not take his Bumex yesterday as he knew he was going to be away from house and did not want to be urinating a lot. Patient reports chronically sleeps in recliner secondary to orthopnea. Yesterday patient had outpatient x-ray thoracic spine and lumbar spine and patient states when had x-rays done he was supine and he became short of breath and had a hard time catching his breath for approximately 30 minutes after. Patient states also noticed some shortness of breath this morning. States throughout the day and this evening he is not feeling short of breath. He denies any chest pain. Denies fever/chills, diaphoresis, N/V/D/C, CABALLERO, dizziness, syncope, vision changes, neck pain, palpitations, sore throat, choking, otalgia, rhinorrhea, abdominal pain, rashes, urinary symptoms. Admission Exam Per Admitting Provider General: no acute distress, obese Head: normocephalic, atraumatic Eyes: PERRL, EOM's intact, conjunctiva non-injected, anicteric ENT: normal inspection external ears, nose, mucous membranes moist Neck: supple, trachea midline, non-tender, ROM intact Lungs: no respiratory distress, mild rales bases CV: RRR, 2+ pretibial edema Abd: normal BS, soft, non-tender Back: limited flexion and extension of back, +tenderness to palpation mid back Ext: chronic bilateral lower leg skin changes, non-tender, strength equal in upper and lower extremities Neuro: A&O x 3, no focal deficits noted, normal affect Skin: warm, dry Principal Diagnosis chest / back pain- probably due to thoracic compression fractures pulmonary embolus- small, probably chronic cough- probable resolving bronchitis CHF- chronic left ventricular diastolic heart failure, chronic right sided heart failure Discharge Data Allergies Allergy/AdvReac Type Severity Reaction Status Date / Time tramadol AdvReac Severe confusion Verified 01/31/19 14:49 acetaminophen AdvReac Unknown nausea Verified 01/31/19 14:49 hydrocodone AdvReac Unknown nausea Verified 01/31/19 14:49 Consultations 01/31/19 21:14 ED Decision to Admit Stat 01/31/19 21:40 Consult Pulmonology Routine Ordered Studies 01/31/19 14:33 CT angio chest PE protocol Stat US venous doppler LE Stat Hospital Course (1) Pulmonary emboli: CTA chest demonstrated: "Small nonocclusive pulmonary embolus seen within a segmental/subsegmental branch of the right upper lobe as described above. This is technically age i ndeterminate but favors chronic thrombus." "There is a second filling defect within a subsegmental branch of the left lower lobe which could represent artifact." Venous duplex lower extremities negative for DVT. Possible small subsegmental PE's RUL and RLL were noted on CTA chest 03/23/18. IV heparin initiated pending further consultation. Pulmonary Medicine consulted. No evidence for acute pulmonary embolism; no need for anticoagulation. (2) Chronic diastolic heart failure: Chronic left ventricular diastolic heart failure and right-sided heart failure, followed by Cardiology. No overt pulmonary edema on chest x-ray. Chronic dependent edema. Pro- BNP normal. IV diuretic therapy offered. Patient prefers to be discharged on usual regimen. (3) CAD (coronary artery disease): No anginal symptoms. Troponin negative. Continue usual meds. (4) Cough: Recent onset cough. Treated with doxycycline- completed 7 day course. Still has chest congestion and productive cough. Afebrile. No leukocytosis. Oxygenating well on RA. No infiltrates appreciated on chest x-ray (only left mid lung atelectasis noted). CTA chest demonstrated "few subtle patchy groundglass perihilar airspace opacities. This nonspecific could be due to mild inflammatory or congestive change." Suspect bronchitis with postbronchitis cough. No apparent need for additional antibiotics at this time. Best to avoid steroids if possible because of DM. Best not to suppress cough. Guaifenesin PRN. Further evaluation if symptoms persist or worsen. (5) Diabetes mellitus, type II: Random glucose on admission 123. Usually uses Toujeo at home. Lantus ordered, but pt preferred not to take it. Received NovoLog. FBS morning of discharge 133. Continue usual regimen. (6) Thoracic compression fracture: CTA chest demonstrated mild to moderate anterior wedge-shaped compression deformities of T5-T7, age-indeterminate. Healing anterior fractures of right 6th and 7th ribs noted. Compression fractures could be secondary to recent coughing. Patient attributes rib fractures to leaning over console in car. Given Rx for oxycodone for back pain 5 mg q 8 hrs PRN # 20. Suspect that patient has been on steroids in past for RA. Outpatient evaluation for osteoporosis recommended. (7) Rib fractures: As discussed above. (8) Rheumatoid arthritis: Continue etanercept. (9) DVT prophylaxis: Received IV heparin for possible PE's. (10) Discharge planning issues: Discharge to home. Internal Medicine follow-up with Dr. Bell. Cardiology follow-up with Dr. Pathak. Total Time Total Time Spent Total Time Spent (In Minutes): 45 Discharge Plan Discharge Items Patient Disposition: Home - Self-Care Reason For Visit: cough, back pain Discharge Diagnosis: cough, back pain Condition: Good Discharge Goals: Decrease discomfort Activity: As commented below Exercise/Sports: Gradually increase as tolerated Non-emergency contact: Primary Care Provider, Hospitalist and Manager [employer] Call non-emergency contact if: you have any medication questions, your symptoms worsen and your temperature is above 101 Follow-up/Referrals: Pepe Pathak MD [Manager Cargo] - Rc Bell DO [Primary Care Provider] - (02/06/2019 9:00 AM Rc Bell DO) Diet: Carb Consistent or DM2 and Heart Healthy Addtl Provider Instructions: No sign of definite new blood clots in lungs on CT scan. Cough due to bronchitis. No need for additional antibiotics at this time. Try plain Robituss for chest congestion - 1 tsp every 6 hours as needed. No prescription necessary. Try oxycodone 5 mg every 8 hours as needed for very severe pain. Continue your usual routine for congestive heart failure. Recent rib fractures and compression fractures of spine. You may have osteoporosis. Please discuss bone health with Dr. Bell. OTHER INSTRUCTIONS: Seek medical attention if you have: * temperature above 101 * chest pain or trouble breathing * abdominal pain, nausea, vomiting * diarrhea, dark stools or bloody stools * any unanswered questions or concerns Call 911 if symptoms are severe. Call if you have any questions or problems. My cell # is [phone]. You can also reach a [facility] hospitalist on duty at [facility] 24 hours a day by calling [phone]. Prescriptions: New guaifenesin 100 mg/5 mL liquid 100 mg PO Q6H PRN (Reason: congested cough) Qty: 500 RF: 0 oxycodone 5 mg tablet 5 mg PO Q8H Qty: 20 RF: 0 Continued metolazone 2.5 mg Tablet 2.5 mg PO DIRECTED RF: 0 cyanocobalamin (vitamin B-12) [Vitamin B-12] 1,000 mcg Tablet Extended Release 1,000 mcg PO DAILY RF: 0 atorvastatin 80 mg Tablet 80 mg PO PM RF: 0 aspirin [Aspirin Low Dose] 81 mg Tablet,Delayed Release (Dr/Ec) 81 mg PO DAILY RF: 0 spironolactone 25 mg Tablet 25 mg PO DAILY RF: 0 levothyroxine 75 mcg Tablet 75 mcg PO DAILY RF: 0 metoprolol tartrate 50 mg Tablet 50 mg PO BID RF: 0 nitroglycerin 0.4 mg Tablet, Sublingual 0.4 mg sublingual DIRECTED RF: 0 doxazosin 2 mg tablet 2 mg PO DAILY RF: 0 insulin lispro [Humalog KwikPen Insulin] 100 unit/mL Insulin Pen 35 unit SUBCUT DAILYBB RF: 0 insulin lispro [Humalog KwikPen Insulin] 100 unit/mL Insulin Pen 32 unit SUBCUT DAILYBL RF: 0 Enbrel 50 mg/mL (0.98 mL) Syringe 50 mg SUBCUT WK RF: 0 cholecalciferol (vitamin D3) [Vitamin D3] 1,000 unit Tablet 1,000 unit PO DAILY RF: 0 potassium chloride 20 mEq Tablet Extended Release 20 meq PO QID RF: 0 empagliflozin 25 mg Tablet 25 mg PO DAILY RF: 0 bumetanide 2 mg Tablet 1.5 tab PO BID RF: 0 baclofen 10 mg Tablet 10 mg PO BID PRN (Reason: Muscle Spasm) RF: 0 insulin lispro [Humalog KwikPen Insulin] 100 unit/mL Insulin Pen 32 unit SUBCUT UD RF: 0 Toujeo SoloStar U-300 Insulin 300 unit/mL (1.5 mL) Insulin Pen 36 unit SUBCUT BID RF: 0 Discontinued doxycycline hyclate 100 mg Capsule 100 mg PO BID RF: 0 Stand-Alone Forms: [facility] Discharge Orders: Discharge Order (Routine); Ordered 02/01/19 Ordered By: Vito Garcia Admission Data Admit Date/Time: 01/31/19 20:08 Attending Provider: Vito Garcia Admit Provider: Vito Garcia Primary Care Provider: Rc Bell Other Providers: [place] ; Vito Garcia Service: Telemetry Other Interventions: Discharge Summary Assessment (RN) Last Done: 02/01/19 16:04 DC Date/Time DO NOT enter until pt leaves facility: 02/01/19 16:42
== END 2019-02-01 16:42 | disposition home or self-care (01) | DRG 542 ==
LOC: ED 12:56 → 2N 20:08